=== PATIENT | male | born 1955 | race Caucasian/White ===

== ENCOUNTER 2020-04-05 14:16 | Emergency (ER) | payer MEDICARE, OTHER ==
--- NOTE | 2020-04-05 14:19 | ERPHSYRPT ---
- History of Present Illness Time Seen by Provider: 04/05/20 14:19 Source: patient Exam Limitations: no limitations Physician History: This is a 64-year-old [place] patient who smokes cigarettes and has a significant cardiac history including 3 cardiac stents and sees cardiology at the [place] [facility]. Patient states that he needs a cardiac valve replacement and is undergoing a scheduled transesophageal echo next week. In the last few weeks patient states that he has not been eating or drinking well. He also has associated increase in shortness of breath and intermittently felt palpitations. Patient is on Plavix. Patient has chest pain today and came in for evaluation. Patient arrived with his heart rate in the 130s to 140s. He has no abdominal pain no nausea vomiting or diarrhea. He is noticed no bleeding from any site. He has no cough. Timing/Duration: week(s) (Approximately 3 weeks) Activities at Onset: activity Severity of Dyspnea-Max: moderate Severity of Dyspnea-Current: moderate Possible Cause: no prior episodes Modifying Factors: Improves With: activity Associated Symptoms: chest pain/discomfort Allergies/Adverse Reactions: No Known Drug Allergies Allergy (Verified 04/05/20 14:35) Home Medications: AMITRIPTYLINE HCL 50 mg Tab [AMITRIPTYLINE HCL 50 mg Tablet] 50 mg PO HS 04/05/20 [History] Aspirin EC 81 mg [Ecotrin 81 mg] 81 mg PO DAILY 04/05/20 [History] Atorvastatin Calcium [Lipitor] 80 mg PO DAILY 04/05/20 [History] Clopidogrel Bisulfate 75 mg [PLAVIX 75 MG Tablet] 75 mg PO DAILY 04/05/20 [History] Cyclobenzaprine HCl 10 mg [Cyclobenzaprine 10 MG] 10 mg PO TID 04/05/20 [History] Hydrocodone Bit/Acetaminophen [Hydrocodon-Acetaminophn 10-325] 1 each PO Q46H 04/05/20 [History] Metoprolol Succinate 100 mg [Toprol Xl 100 MG] 100 mg PO DAILY 04/05/20 [History] Travel Risk - International Travel Have you traveled outside of the country in past 3 weeks: No - Coronavirus Screening Are you exhibiting any of the following symptoms?: Yes Symptoms: Shortness of Breath Close contact with a COVID-19 positive Pt in past 14-21 Days: No - Review of Systems Constitutional: Weakness Eyes: No Symptoms Ears, Nose, & Throat: No Symptoms Respiratory: Dyspnea Cardiac: Chest Pain, Palpitations Abdominal/Gastrointestinal: No Symptoms Genitourinary Symptoms: No Symptoms Musculoskeletal: No Symptoms Skin: No Symptoms Neurological: No Symptoms Psychological: No Symptoms Endocrine: No Symptoms Hematologic/Lymphatic: No Symptoms Immunological/Allergic: No Symptoms All Other Systems: Reviewed and Negative - Past Medical History Pertinent Past Medical History: Yes Cardiac History: Coronary Artery Disease, High Cholesterol, Hypertension Respiratory History: No Pertinent History Endocrine Medical History: No Pertinent History Musculoskeletal History: No Pertinent History GI Medical History: No Pertinent History History: No Pertinent History Psycho-Social History: No Pertinent History Male Reproductive Disorders: No Pertinent History - Past Surgical History Past Surgical History: Yes Neuro Surgical History: No Pertinent History Cardiac: Cardiac Catheterization, Cardiac Stent Respiratory: No Pertinent History Gastrointestinal: No Pertinent History Genitourinary: No Pertinent History Musculoskeletal: No Pertinent History Male Surgical History: No Pertinent History - Social History Smoking Status: Current every day smoker - Nursing Vital Signs Nursing Vital Signs: Initial Vital Signs Temperature 97.6 F 04/05/20 14:20 Pulse Rate 139 H 04/05/20 14:20 Respiratory Rate 28 H 04/05/20 14:20 Blood Pressure 123/89 04/05/20 14:20 O2 Sat by Pulse Oximetry 100 04/05/20 14:20 Pain Scale Pain Intensity 6 - Physical Exam General Appearance: moderate distress, alert, anxiety, thin Eye Exam: PERRL/EOMI, eyes nml inspection Ears, Nose, Throat Exam: hearing grossly normal, normal ENT inspection, normal pharynx Neck Exam: normal inspection, non-tender, supple, full range of motion Respiratory Exam: normal breath sounds, chest tenderness, lungs clear, respiratory distress (Old), airway intact Cardiovascular/Chest Exam: normal heart sounds, regular rate/rhythm, normal peripheral pulses Abdominal/Gastrointestinal Exam: soft, normal bowel sounds, tenderness Rectal Exam: not done Extremity Exam: non-tender, normal range of motion, normal inspection Neurologic Exam: alert, oriented x 3, cooperative, 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, normal mood/affect, nml cerebellar function, nml station & gait, sensation nml Skin Exam: warm, dry, pale Lymphatic Exam: No adenopathy SpO2 Interpretation: normal O2 Delivery: Room Air Ordered Tests: Active Orders 24 hr Category Date Time Status [employer] STAT Care 04/05/20 14:20 Active EKG-ER Only STAT Care 04/05/20 14:19 Active IV Insertion STAT Care 04/05/20 14:19 Active IV Insertion-2nd Peripheral STAT Care 04/05/20 14:42 Active Pulse Oximetry (ED) STAT Care 04/05/20 14:19 Active CHEST 1 VIEW (PORTABLE) Stat Exams 04/05/20 14:19 Completed CBC W DIFF Stat Lab 04/05/20 14:43 Completed CMP Stat Lab 04/05/20 14:43 Completed D-DIMER QUANTITATIVE Stat Lab 04/05/20 14:43 Completed NT PRO BNP Stat Lab 04/05/20 14:43 Completed TROPONIN Q3H Lab 04/05/20 14:43 Completed TROPONIN Q3H Lab 04/05/20 17:30 Received TROPONIN Q3H Lab 04/05/20 20:30 Ordered TROPONIN Q3H Lab 04/05/20 23:30 Ordered TROPONIN Q3H Lab 04/06/20 02:30 Ordered Medication Summary Generic Name Dose Route Start Last Admin Trade Name Freq PRN Reason Stop Dose Admin Diltiazem HCl 100 mls @ 5 mls/hr 04/05/20 15:40 04/05/20 15:49 Cardizem Drip 100 Mg/100 Ml D5w IV 05/05/20 15:39 5 mg/hr .Q20H PRN 5 mls/hr HEART RATE/ A-FIB Administration Protocol 5 MG/HR Discontinued Medications Generic Name Dose Route Start Last Admin Trade Name Freq PRN Reason Stop Dose Admin Diltiazem HCl 15 mg 04/05/20 14:31 04/05/20 14:43 Cardizem Iv 50 Mg/10 Ml IV 04/05/20 14:32 15 mg STAT ONE Administration Diltiazem HCl Confirm 04/05/20 14:41 Cardizem Iv 50 Mg/10 Ml Administered 04/05/20 14:42 Dose 50 mg IV .STK-MED ONE Furosemide 40 mg 04/05/20 16:41 04/05/20 16:49 Lasix 40 Mg/4 Ml IV 04/05/20 16:42 40 mg STAT ONE Administration Furosemide Confirm 04/05/20 16:48 Lasix 40 Mg/4 Ml Administered 04/05/20 16:49 Dose 40 mg .ROUTE .STK-MED ONE Sodium Chloride 1,000 mls @ 999 mls/hr 04/05/20 14:46 04/05/20 15:47 Sodium Chloride 0.9% 1000 Ml IV 04/05/20 15:46 Infused .Q1H1M STA Infusion Sodium Chloride Confirm 04/05/20 14:47 Sodium Chloride 0.9% 1000 Ml Administered 04/05/20 14:48 Dose 1,000 mls @ ud .ROUTE .STK-MED ONE Sodium Chloride 1,000 mls @ 999 mls/hr 04/05/20 15:41 04/05/20 15:48 Sodium Chloride 0.9% 1000 Ml IV 04/05/20 16:41 250 mls/hr .Q1H1M STA Administration Sodium Chloride Confirm 04/05/20 15:43 Sodium Chloride 0.9% 1000 Ml Administered 04/05/20 15:44 Dose 1,000 mls @ ud .ROUTE .STK-MED ONE Lab/Rad Data: Laboratory Result Diagrams 04/05/20 14:43 04/05/20 14:43 Laboratory Results 04/05/20 04/05/20 04/05/20 Range/Units 14:43 14:43 14:43 WBC (4.0-10.5) K/mm3 RBC (4.1-5.6) M/mm3 Hgb (12.5-18.0) gm/dl Hct (42-50) % MCV (78-100) fl MCH (26-32) pg MCHC (32-36) g/dl RDW (11.5-14.0) % Plt Count (150-450) K/mm3 MPV (7.5-11.0) fl Gran % (36.0-66.0) % Eos # (Auto) (0-0.5) Absolute Lymphs (auto) (1.0-4.6) Absolute Monos (auto) (0.0-1.3) Lymphocytes % (24.0-44.0) % Monocytes % (0.0-12.0) % Eosinophils % (0.00-5.0) % Basophils % (0.0-0.4) % Absolute Granulocytes (1.4-6.9) Basophils # (0-0.4) D-Dimer 5916 H* (215-500) ng/mL Sodium 140 (137-145) mmol/L Potassium 4.8 (3.5-5.1) mmol/L Chloride 107 (98-107) mmol/L Carbon Dioxide 17 L (22-30) mmol/L Anion Gap 20.6 H (5-15) MEQ/L BUN 43 H (9-20) mg/dL Creatinine 2.61 H (0.66-1.25) mg/dL Estimated GFR 26.3 ML/MIN Glucose 149 H (74-106) mg/dL Calcium 9.2 (8.4-10.2) mg/dL Total Bilirubin 1.00 (0.2-1.3) mg/dL AST 74 H (17-59) U/L ALT 77 H (0-50) U/L Alkaline Phosphatase 137 H (38-126) U/L Troponin I 0.088 H* (0.000-0.034) ng/mL NT-Pro-B Natriuret Pep 20192 H (0-900) pg/mL Serum Total Protein 7.4 (6.3-8.2) g/dL Albumin 4.3 (3.5-5.0) g/dL 04/05/20 Range/Units 14:43 WBC 10.5 (4.0-10.5) K/mm3 RBC 3.86 L (4.1-5.6) M/mm3 Hgb 11.2 L (12.5-18.0) gm/dl Hct 36.1 L (42-50) % MCV 93.5 (78-100) fl MCH 29.0 (26-32) pg MCHC 31.0 L (32-36) g/dl RDW 14.7 H (11.5-14.0) % Plt Count 245 (150-450) K/mm3 MPV 11.2 H (7.5-11.0) fl Gran % 65.6 (36.0-66.0) % Eos # (Auto) 0.02 (0-0.5) Absolute Lymphs (auto) 2.93 (1.0-4.6) Absolute Monos (auto) 0.63 (0.0-1.3) Lymphocytes % 28.0 (24.0-44.0) % Monocytes % 6.0 (0.0-12.0) % Eosinophils % 0.2 (0.00-5.0) % Basophils % 0.2 (0.0-0.4) % Absolute Granulocytes 6.87 (1.4-6.9) Basophils # 0.02 (0-0.4) D-Dimer (215-500) ng/mL Sodium (137-145) mmol/L Potassium (3.5-5.1) mmol/L Chloride (98-107) mmol/L Carbon Dioxide (22-30) mmol/L Anion Gap (5-15) MEQ/L BUN (9-20) mg/dL Creatinine (0.66-1.25) mg/dL Estimated GFR ML/MIN Glucose (74-106) mg/dL Calcium (8.4-10.2) mg/dL Total Bilirubin (0.2-1.3) mg/dL AST (17-59) U/L ALT (0-50) U/L Alkaline Phosphatase (38-126) U/L Troponin I (0.000-0.034) ng/mL NT-Pro-B Natriuret Pep (0-900) pg/mL Serum Total Protein (6.3-8.2) g/dL Albumin (3.5-5.0) g/dL - Progress Progress: improved Air Movement: good Progress Note: 04/05/20 15:41 Repeat EKG after 15 mg of intravenous Cardizem shows normal sinus rhythm at 80 bpm no acute ischemic changes noted. That EKG was done on 04/05/2020 at 3:07 PM 04/05/20 18:11 Medical decision making: This patient and his condition as well as history was reviewed with Dr. Rome Bloom the physician part time receptionist for the [facility]. He accepts the patient in transfer. Bed control contact us. Blood Culture(s) Obtained: No Antibiotics given: No - Departure Departure Disposition: Transfer Clinical Impression: Atrial flutter with rapid ventricular response, Shortness of breath, Chest pain, Elevated d-dimer, Elevated troponin, Acute renal failure Condition: Stable Critical Care Time: Yes Critical Care Time(excluding separately billable procedures): Critical 30-74 mins Referrals: DOCTOR,NO FAMILY [Primary Care Provider] -
[2020-04-05] MEDS ORDERED: Cardizem IV 50 MG/10 ML IV ONE ×2 (14:31→14:41)
[2020-04-05 14:46] LABS: Absolute Neutrophil Ct (ANC) 6.87 (1.4-6.9); BASOPHIL % 0.2 % (0.0-0.4); Basophil (Absolute #) 0.02 (0-0.4); Eosinophil % 0.2 % (0.00-5.0); Eosinophil (Absolute #) 0.02 (0-0.5); Hematocrit 36.1 % (42-50); Hemoglobin 11.2 gm/dl (12.5-18.0); Lymphocyte (Absolute #) 2.93 (1.0-4.6); Mean Cell Volume 93.5 fl (78-100); Mean Platelet Volume 11.2 fl (7.5-11.0); Monocyte (Absolute #) 0.63 (0.0-1.3); Neutrophil % 65.6 % (36.0-66.0); Platelet Count 245 K/mm3 (150-450); Red Blood Count 3.86 M/mm3 (4.1-5.6); Red Cell Distribution Width 14.7 % (11.5-14.0); White Blood Count 10.5 K/mm3 (4.0-10.5)
[2020-04-05] MEDS ORDERED: Sodium Chloride 0.9% 1000 ML 1,000 ML IV STA ×2 (14:46→15:41)
[2020-04-05] MEDS ORDERED: Sodium Chloride 0.9% 1000 ML 1,000 ML ONE ×2 (14:47→15:43)
[2020-04-05 15:28] LABS: ALBUMIN 4.3 g/dL (3.5-5.0); ANION GAP 20.6 MEQ/L (5-15); Calcium 9.2 mg/dL (8.4-10.2); Creatinine 1 2.61 mg/dL (0.66-1.25); EST GLOMERULAR FILTRATION RATE 26.3 ML/MIN; Potassium 4.8 mmol/L (3.5-5.1); Total Protein 7.4 g/dL (6.3-8.2)
[2020-04-05] MEDS ORDERED: CARDIZEM DRIP 100 MG/100 ML D5W 100 ML IV PRN (15:40)
[2020-04-05] MEDS ORDERED: CARDIZEM DRIP 100 MG/100 ML D5W 100 ML IV ONE (15:43)
[2020-04-05] MEDS ORDERED: Lasix 40 MG/4 ML IV ONE (16:41)
[2020-04-05] MEDS ORDERED: Lasix 40 MG/4 ML ONE (16:48)
--- NOTE | 2020-04-05 17:25 | XRAY ---
Indication: Short of breath. Comparison: None Portable chest hyperinflated with minimal right base fibrosis/scarring and right apical suture material. No focal infiltrate, consolidation, or large effusion. Heart is not enlarged with incidental coronary stent. Bony thorax intact with old right 6 rib fracture. Impression: No acute chest with chronic features.
[2020-04-05] MEDS ORDERED: LEVOPHED 4 MG/4 ML 4,000 MCG in Dextrose 5%/Water IV Soln. 500 ML 500 ML IV PRN (19:08)
[2020-04-05] MEDS ORDERED: MORPHINE SULFATE 2 MG INJ IV ONE ×2 (19:49→20:52)
[2020-04-05] MEDS ORDERED: MORPHINE SULFATE 2 MG INJ ONE ×2 (19:50→20:48)
[2020-04-05 20:33] VITALS: PULSE 76; O2SAT 94
[2020-04-05] MEDS ORDERED: Zofran 4 MG/2 ML VIAL ONE (20:47)
[2020-04-05] MEDS ORDERED: Zofran 4 MG/2 ML VIAL IV ONE (20:52)
[2020-04-05 21:19] VITALS: BP 70/0
--- NOTE | 2020-04-05 21:48 | XRAY ---
Indication: Chest pain. Multiple contiguous axial images obtained through the chest without contrast as ordered. Comparison: None. Study limited by mild respiration artifact. Extensive diffuse centrilobular pulmonary emphysema bilaterally with mild bibasilar dependent atelectasis. Superior segment left lower lobe demonstrates small focus of patchy airspace disease. Right minor fissure thickening. No effusion. Heart is not enlarged. Aorta is minimally arteriosclerotic without aneurysmal dilatation. No pathologic mediastinal lymphadenopathy. Bony thorax intact. CT abdomen/pelvis reported separately. Impression: 1. Respiration artifact. 2. Patchy left lower lobe airspace disease. 3. Extensive pulmonary emphysema. Comment: Preliminary interpretation was made by [facility]. No critical discrepancy.
--- NOTE | 2020-04-05 21:53 | XRAY ---
Indication: Sudden onset flank pain. Multiple contiguous axial images obtained through the abdomen and pelvis without contrast as ordered. Comparison: None. CT chest reported separately. Mild respiration artifact throughout. Stomach is mildly fluid distended. Noncontrasted stomach and bowel loops appear nonobstructed. Normal air-filled appendix. Moderate diffuse scattered colonic fecal debris throughout. Radiopacity throughout the colon either ingested medication/bismuth or barium. Minimal sigmoid diverticulosis. No gross free fluid/air. Gallbladder contracted without gallstones. Left kidney is atrophic. Watkins catheter drains the urinary bladder. Remaining liver, pancreas, spleen, adrenal glands, right kidney, and ureters appear unremarkable for noncontrast exam. Mild scattered aortoiliac calcifications without AAA. Incidental undescended left testicle in the inferior left inguinal canal. Osseous structures intact. Indeterminate 1.3cm lytic lesion right innominate bone. Impression: 1. Respiration artifact. 2. Diffuse fecal stasis and minimal sigmoid diverticulosis. 3. Indeterminate right innominate bone lytic lesion, left renal atrophy and undescended left testicle. 4. Remaining CT abdomen/pelvis without contrast exam is grossly negative. Comment: Preliminary interpretation was made by [facility]. No critical discrepancy.
== END 2020-04-05 21:20 ==
LOC: ED 14:16
DX: I48.92 Unspecified atrial flutter (principal); R06.02 Shortness of breath; R07.9 Chest pain, unspecified; R79.89 Other specified abnormal findings of blood chemistry; R74.8 Abnormal levels of other serum enzymes; N17.9 Acute kidney failure, unspecified; I25.10 Atherosclerotic heart disease of native coronary artery without angina pectoris; I10 Essential (primary) hypertension; Z72.0 Tobacco use
CPT/HCPCS: 36000; 36415; 71045; 71250; 74176; 80053; 83880; 84484; 85025; 85379; 93005; 93041; 94760; 96360; 96361; 96365; 96366; 96368; 96374; 96375; 96376; 99285; 99291; J1940; J2270; J2405

== ENCOUNTER 2020-04-22 15:12 | Observation (INO) | payer OTHER, MEDICARE ==
--- NOTE | 2020-04-22 16:37 | ERPHSYRPT ---
- History of Present Illness Source: patient Exam Limitations: no limitations Patient Subjective Stated Complaint: SOB and fatigue Triage Nursing Assessment: pt to ED c/o SOB and fatigue x 3 days. states he was just DC from [place] [facility] for CHF and is "not feeling back to myself yet, and I might feel worse." denies pain currently but states these sx feel same as when dx with CHF. lungs sounds clear bilaterally, heart sounds clear. pt is wam and pale. ambulatory with SBA, WC to room and self pivot to bed. A&Ox4. Timing/Duration: day(s) (A few days.), intermittent, worse Activities at Onset: activity Severity of Dyspnea-Max: moderate Severity of Dyspnea-Current: moderate Possible Cause: occasional episodes Modifying Factors: Improves With: activity Associated Symptoms: intermittent, No anxiety, No cough, No chest pain/discomfort, No wheezing Hx Tetanus, Diphtheria Vaccination/Date Given: No Hx Influenza Vaccination/Date Given: No Hx Pneumococcal Vaccination/Date Given: No Immunizations Up to Date: No - History of Present Illness Time Seen by Provider: 04/22/20 15:45 Physician History: This is a 64-year-old white male who is a [facility] patient and was discharged to home from the [facility] in [place] approximately 8 days ago. There, he was diagnosed with atrial fibrillation and congestive heart failure. Patient states that he was feeling pretty good for a few days but in the last 3 days he has had increasing shortness of breath and fatigue. He has new medications including amiodarone, aspirin, apixaban, Lasix and metoprolol. He denies chest pain. He denies pain anywhere. (VIOLA CRAWLEY) Allergies/Adverse Reactions: No Known Drug Allergies Allergy (Verified 04/22/20 16:00) Home Medications: AMITRIPTYLINE HCL 50 mg Tab [AMITRIPTYLINE HCL 50 mg Tablet] 50 mg PO HS 04/05/20 [History] Aspirin EC 81 mg [Ecotrin 81 mg] 81 mg PO DAILY 04/05/20 [History] Atorvastatin Calcium [Lipitor] 80 mg PO DAILY 04/05/20 [History] Cyclobenzaprine HCl 10 mg [Cyclobenzaprine 10 MG] 10 mg PO TID 04/05/20 [History] Metoprolol Succinate 100 mg [Toprol Xl 100 MG] 50 mg PO DAILY 04/05/20 [History] Amiodarone HCl 200 mg [Cordarone 200 MG] 200 mg PO DAILY 04/22/20 [History] Apixaban [Eliquis] 5 mg PO DAILY 04/22/20 [History] Clopidogrel Bisulfate 75 mg [PLAVIX 75 MG Tablet] 75 mg PO DAILY 04/22/20 [History] Duloxetine HCl 60 mg PO DAILY 04/22/20 [History] Furosemide 20 mg [Lasix 20 mg] 20 mg PO DAILY 04/22/20 [History] Lisinopril 5 mg [Zestril 5 MG] 5 mg PO DAILY 04/22/20 [History] Travel Risk - International Travel Have you traveled outside of the country in past 3 weeks: No - Coronavirus Screening Are you exhibiting any of the following symptoms?: Yes Symptoms: Shortness of Breath Close contact with a COVID-19 positive Pt in past 14-21 Days: No - Review of Systems Constitutional: Fatigue, Weakness Eyes: No Symptoms Ears, Nose, & Throat: No Symptoms Respiratory: No Symptoms Cardiac: No Symptoms Abdominal/Gastrointestinal: No Symptoms Genitourinary Symptoms: No Symptoms Musculoskeletal: No Symptoms Skin: No Symptoms Neurological: No Symptoms Psychological: No Symptoms Endocrine: No Symptoms Hematologic/Lymphatic: No Symptoms Immunological/Allergic: No Symptoms All Other Systems: Reviewed and Negative - Past Medical History Pertinent Past Medical History: Yes Cardiac History: Congestive Heart Failure, Coronary Artery Disease, High Cholesterol, Hypertension, Myocardial Infarction (IA) Respiratory History: No Pertinent History Endocrine Medical History: No Pertinent History Musculoskeletal History: No Pertinent History GI Medical History: No Pertinent History History: No Pertinent History Psycho-Social History: No Pertinent History Male Reproductive Disorders: No Pertinent History Other Medical History: BACK PAIN, PART OF RIGHT LUNG REMOVED 30 YEARS AGO DUE TO UNKNOWN CAUSE - Past Surgical History Past Surgical History: Yes Neuro Surgical History: No Pertinent History Cardiac: Cardiac Catheterization, Cardiac Stent Respiratory: No Pertinent History Gastrointestinal: No Pertinent History Genitourinary: No Pertinent History Musculoskeletal: No Pertinent History Male Surgical History: No Pertinent History Other Surgical History: 3 BACK SURGERIES, LEFT ELBOW SURGERY, 3 STENTS - Social History Smoking Status: Current every day smoker How long have you smoked: years Exposure to second hand smoke: Yes Drug Use: none Patient Lives Alone: No (mother) - Physical Exam General Appearance: no apparent distress, alert, anxiety, thin Eye Exam: PERRL/EOMI, eyes nml inspection Ears, Nose, Throat Exam: hearing grossly normal, normal ENT inspection, normal pharynx Neck Exam: normal inspection, non-tender, supple, full range of motion Respiratory Exam: normal breath sounds, lungs clear, airway intact, No chest tenderness, No respiratory distress Cardiovascular/Chest Exam: normal heart sounds, regular rate/rhythm, normal peripheral pulses Abdominal/Gastrointestinal Exam: soft, normal bowel sounds, No tenderness Rectal Exam: not done Extremity Exam: non-tender, normal range of motion, normal inspection Neurologic Exam: alert, oriented x 3, cooperative, head bucker II-XII nml as tested, normal mood/affect, nml cerebellar function, nml station & gait, sensation nml Skin Exam: normal color, warm, dry Lymphatic Exam: No adenopathy SpO2 Interpretation: normal SpO2: 99 O2 Delivery: Room Air - Nursing Vital Signs Nursing Vital Signs: Initial Vital Signs Temperature 97.4 F 04/22/20 15:20 Pulse Rate 69 04/22/20 15:20 Respiratory Rate 18 04/22/20 15:20 Blood Pressure 120/85 04/22/20 15:20 O2 Sat by Pulse Oximetry 100 04/22/20 15:20 Pain Scale Pain Intensity 0 - Course Nursing assessment & vital signs reviewed: Yes EKG Interpreted by Me: RATE (73), Sinus Rhythm, Left [place] Deviation, NORMAL INTERVALS, NORMAL QRS, Non-specific ST Changes, Other (No acute ischemic changes. The EKG dated 04/05/2020 is a comparison EKG. The atrial tachycardia has now resolved. The prolonged QT interval has now resolved. The left ventricular hypertrophy has now resolved.) Ordered Tests: Active Orders 24 hr Category Date Time Status Mail Truck Driver STAT Care 04/22/20 16:38 Active EKG-ER Only STAT Care 04/22/20 16:37 Active IV Insertion STAT Care 04/22/20 16:37 Active Pulse Oximetry (ED) STAT Care 04/22/20 16:37 Active Re-Check Vital Signs STAT Care 04/22/20 16:37 Active CHEST 1 VIEW (PORTABLE) Stat Exams 04/22/20 16:40 Completed CBC W DIFF Stat Lab 04/22/20 16:37 Completed CMP Stat Lab 04/22/20 15:40 Completed Lactic Acid Stat Lab 04/22/20 17:10 Completed Lactic Acid Stat Lab 04/22/20 19:15 Received MAGNESIUM Stat Lab 04/22/20 15:40 Completed NT PRO BNP Stat Lab 04/22/20 15:40 Completed PROTIME WITH INR Stat Lab 04/22/20 16:37 Completed TROPONIN Q3H Lab 04/22/20 15:40 Completed TROPONIN Q3H Lab 04/22/20 20:19 Completed TROPONIN Q3H Lab 04/22/20 22:45 Completed TROPONIN Q3H Lab 04/23/20 01:45 Ordered TROPONIN Q3H Lab 04/23/20 04:45 Ordered UA W/RFX UR CULTURE Stat Lab 04/22/20 17:23 Completed Transfer Order Routine Transfer 04/23/20 Ordered Medication Summary Discontinued Medications Generic Name Dose Route Start Last Admin Trade Name Freq PRN Reason Stop Dose Admin Aspirin 324 mg 04/22/20 20:33 04/22/20 20:42 Baby Aspirin 81 Mg Chew PO 04/22/20 20:34 Not Given STAT ONE Furosemide 40 mg 04/22/20 20:19 04/22/20 20:25 Lasix 40 Mg/4 Ml IV 04/22/20 20:20 40 mg STAT ONE Administration Furosemide Confirm 04/22/20 20:22 Lasix 40 Mg/4 Ml Administered 04/22/20 20:23 Dose 40 mg .ROUTE .STK-MED ONE Pantoprazole Sodium 80 mg/ 500 mls @ 50 mls/hr 04/23/20 01:00 Sodium Chloride IV 05/23/20 00:59 .Q10H NAOMI Ondansetron HCl 4 mg 04/22/20 20:33 04/22/20 20:41 Zofran 4 Mg/2 Ml Vial IV 04/22/20 20:34 Not Given STAT ONE Lab/Rad Data: Laboratory Result Diagrams 04/22/20 16:37 04/22/20 15:40 Laboratory Results 04/22/20 04/22/20 04/22/20 Range/Units 22:45 20:19 17:23 WBC (4.0-10.5) K/mm3 RBC (4.1-5.6) M/mm3 Hgb (12.5-18.0) gm/dl Hct (42-50) % MCV (78-100) fl MCH (26-32) pg MCHC (32-36) g/dl RDW (11.5-14.0) % Plt Count (150-450) K/mm3 MPV (7.5-11.0) fl Gran % (36.0-66.0) % Eos # (Auto) (0-0.5) Absolute Lymphs (auto) (1.0-4.6) Absolute Monos (auto) (0.0-1.3) Lymphocytes % (24.0-44.0) % Monocytes % (0.0-12.0) % Eosinophils % (0.00-5.0) % Basophils % (0.0-0.4) % Absolute Granulocytes (1.4-6.9) Basophils # (0-0.4) PT (8.83-12.87) SECONDS INR (0.8-3.0) Sodium (137-145) mmol/L Potassium (3.5-5.1) mmol/L Chloride (98-107) mmol/L Carbon Dioxide (22-30) mmol/L Anion Gap (5-15) MEQ/L BUN (9-20) mg/dL Creatinine (0.66-1.25) mg/dL Estimated GFR ML/MIN Glucose (74-106) mg/dL Lactic Acid (0.4-2.0) Calcium (8.4-10.2) mg/dL Magnesium (1.6-2.3) mg/dL Total Bilirubin (0.2-1.3) mg/dL AST (17-59) U/L ALT (0-50) U/L Alkaline Phosphatase (38-126) U/L Troponin I 0.013 < 0.012 (0.000-0.034) ng/mL NT-Pro-B Natriuret Pep (0-900) pg/mL Serum Total Protein (6.3-8.2) g/dL Albumin (3.5-5.0) g/dL Urine Color YELLOW (YELLOW) Urine Appearance CLEAR (CLEAR) Urine pH 5.0 (5-6) Ur Specific Rena Lara 1.018 (1.005-1.025) Urine Protein 30 (Negative) Urine Ketones NEGATIVE (NEGATIVE) Urine Blood NEGATIVE (0-5) Travon/ul Urine Nitrite NEGATIVE (NEGATIVE) Urine Bilirubin NEGATIVE (NEGATIVE) Urine Urobilinogen 2 (0-1) mg/dL Ur Leukocyte Esterase NEGATIVE (NEGATIVE) Urine WBC (Auto) NONE (0-5) /HPF Urine RBC (Auto) NONE (0-2) /HPF U Hyaline Cast (Auto) 11-25 (0-2) /LPF U Epithel Cells (Auto) NONE (FEW) /HPF Urine Bacteria (Auto) NONE (NEGATIVE) /HPF Urine Mucus (Auto) SLIGHT (NEGATIVE) /HPF Urine Culture Reflexed NO (NO) Urine Glucose NEGATIVE (NEGATIVE) mg/dL 04/22/20 04/22/20 04/22/20 Range/Units 17:10 16:37 16:37 WBC 9.9 (4.0-10.5) K/mm3 RBC 3.30 L (4.1-5.6) M/mm3 Hgb 9.2 L (12.5-18.0) gm/dl Hct 30.8 L (42-50) % MCV 93.3 (78-100) fl MCH 27.9 (26-32) pg MCHC 29.9 L (32-36) g/dl RDW 15.4 H (11.5-14.0) % Plt Count 437 (150-450) K/mm3 MPV 10.9 (7.5-11.0) fl Gran % 76.8 H (36.0-66.0) % Eos # (Auto) 0.12 (0-0.5) Absolute Lymphs (auto) 1.66 (1.0-4.6) Absolute Monos (auto) 0.50 (0.0-1.3) Lymphocytes % 16.7 L (24.0-44.0) % Monocytes % 5.0 (0.0-12.0) % Eosinophils % 1.2 (0.00-5.0) % Basophils % 0.3 (0.0-0.4) % Absolute Granulocytes 7.63 H (1.4-6.9) Basophils # 0.03 (0-0.4) PT 52.7 H (8.83-12.87) SECONDS INR 4.59 H (0.8-3.0) Sodium (137-145) mmol/L Potassium (3.5-5.1) mmol/L Chloride (98-107) mmol/L Carbon Dioxide (22-30) mmol/L Anion Gap (5-15) MEQ/L BUN (9-20) mg/dL Creatinine (0.66-1.25) mg/dL Estimated GFR ML/MIN Glucose (74-106) mg/dL Lactic Acid 3.7 H (0.4-2.0) Calcium (8.4-10.2) mg/dL Magnesium (1.6-2.3) mg/dL Total Bilirubin (0.2-1.3) mg/dL AST (17-59) U/L ALT (0-50) U/L Alkaline Phosphatase (38-126) U/L Troponin I (0.000-0.034) ng/mL NT-Pro-B Natriuret Pep (0-900) pg/mL Serum Total Protein (6.3-8.2) g/dL Albumin (3.5-5.0) g/dL Urine Color (YELLOW) Urine Appearance (CLEAR) Urine pH (5-6) Ur Specific Rena Lara (1.005-1.025) Urine Protein (Negative) Urine Ketones (NEGATIVE) Urine Blood (0-5) Travon/ul Urine Nitrite (NEGATIVE) Urine Bilirubin (NEGATIVE) Urine Urobilinogen (0-1) mg/dL Ur Leukocyte Esterase (NEGATIVE) Urine WBC (Auto) (0-5) /HPF Urine RBC (Auto) (0-2) /HPF U Hyaline Cast (Auto) (0-2) /LPF U Epithel Cells (Auto) (FEW) /HPF Urine Bacteria (Auto) (NEGATIVE) /HPF Urine Mucus (Auto) (NEGATIVE) /HPF Urine Culture Reflexed (NO) Urine Glucose (NEGATIVE) mg/dL 04/22/20 04/22/20 Range/Units 15:40 15:40 WBC (4.0-10.5) K/mm3 RBC (4.1-5.6) M/mm3 Hgb (12.5-18.0) gm/dl Hct (42-50) % MCV (78-100) fl MCH (26-32) pg MCHC (32-36) g/dl RDW (11.5-14.0) % Plt Count (150-450) K/mm3 MPV (7.5-11.0) fl Gran % (36.0-66.0) % Eos # (Auto) (0-0.5) Absolute Lymphs (auto) (1.0-4.6) Absolute Monos (auto) (0.0-1.3) Lymphocytes % (24.0-44.0) % Monocytes % (0.0-12.0) % Eosinophils % (0.00-5.0) % Basophils % (0.0-0.4) % Absolute Granulocytes (1.4-6.9) Basophils # (0-0.4) PT (8.83-12.87) SECONDS INR (0.8-3.0) Sodium 134 L (137-145) mmol/L Potassium 4.4 (3.5-5.1) mmol/L Chloride 100 (98-107) mmol/L Carbon Dioxide 21 L (22-30) mmol/L Anion Gap 17.6 H (5-15) MEQ/L BUN 41 H (9-20) mg/dL Creatinine 2.60 H (0.66-1.25) mg/dL Estimated GFR 26.5 ML/MIN Glucose 177 H (74-106) mg/dL Lactic Acid (0.4-2.0) Calcium 9.1 (8.4-10.2) mg/dL Magnesium 2.0 (1.6-2.3) mg/dL Total Bilirubin 0.90 (0.2-1.3) mg/dL AST 234 H (17-59) U/L ALT 234 H (0-50) U/L Alkaline Phosphatase 404 H (38-126) U/L Troponin I 0.015 (0.000-0.034) ng/mL NT-Pro-B Natriuret Pep 55801 H (0-900) pg/mL Serum Total Protein 7.7 (6.3-8.2) g/dL Albumin 3.9 (3.5-5.0) g/dL Urine Color (YELLOW) Urine Appearance (CLEAR) Urine pH (5-6) Ur Specific Rena Lara (1.005-1.025) Urine Protein (Negative) Urine Ketones (NEGATIVE) Urine Blood (0-5) Travon/ul Urine Nitrite (NEGATIVE) Urine Bilirubin (NEGATIVE) Urine Urobilinogen (0-1) mg/dL Ur Leukocyte Esterase (NEGATIVE) Urine WBC (Auto) (0-5) /HPF Urine RBC (Auto) (0-2) /HPF U Hyaline Cast (Auto) (0-2) /LPF U Epithel Cells (Auto) (FEW) /HPF Urine Bacteria (Auto) (NEGATIVE) /HPF Urine Mucus (Auto) (NEGATIVE) /HPF Urine Culture Reflexed (NO) Urine Glucose (NEGATIVE) mg/dL - Progress Progress: improved, re-examined Air Movement: good Blood Culture(s) Obtained: No Antibiotics given: No Counseled pt/family regarding: lab results, diagnosis, rad results - Progress Progress Note: 04/22/20 18:48 Medical decision making: This patient has congestive heart failure that seems to be worsening in the last couple weeks, worsening anemia in the last couple weeks, chronic renal insufficiency, elevated liver function test, elevated INR. He is becoming more symptomatic in terms of shortness of breath and fatigue. We called the [facility] and are waiting a callback from them. I am reviewing the patient with Dr. Marcia Snyder here in this emergency department. I am going to transfer care to him. He has been informed of the patient's diagnoses and condition and will make the final disposition of this patient. It is assumed t hat he will be transferred to the [facility] in [place]. We are awaiting the call back from the hospitalist. (VIOLA CRAWLEY) 04/23/20 00:[address] Snyder at approximately 7 PM. Staff was in the process of transferring patient to the [facility]. [facility] notified our staff that they did not have physician coverage sufficient to care for our patient so they advised to either keep patient in our facility or transfer. Case discussed with hospitalist who felt that patient would require a general ophthalmologist and GI specialist to treat suspected GI bleed and congestive heart failure. We called [facility], [facility], and [facility] all of which were unable to accommodate our patient. [facility] did not have GI a vailable. [facility] stated that they could not accommodate our patient until mid morning or sometime in the afternoon. [facility] could not accommodate our patient due to volume issues. We called Dr. Waters and explained to him the situation. Dr. Waters accepted patient to observation. Patient received Protonix in our ED for possible GI bleed. Patient received Lasix for treatment of elevated BNP. Patient vitals stable. Plan of care discussed with patient. He agreed to admission to [facility] for further evaluation and treatment. (MARCIA SNYDER) - Departure Departure Disposition: Transfer Critical Care Time: No - Departure Clinical Impression: Anemia, Chronic renal insufficiency, stage II (mild), Congestive heart failure, Elevated liver function tests, Elevated INR Condition: Stable Referrals: DOCTOR,NO FAMILY [Primary Care Provider] - Instructions: Heart Failure
[2020-04-22 17:00] LABS: Absolute Neutrophil Ct (ANC) 7.63 (1.4-6.9); BASOPHIL % 0.3 % (0.0-0.4); Basophil (Absolute #) 0.03 (0-0.4); Eosinophil % 1.2 % (0.00-5.0); Eosinophil (Absolute #) 0.12 (0-0.5); Hematocrit 30.8 % (42-50); Hemoglobin 9.2 gm/dl (12.5-18.0); INR 4.59 (0.8-3.0); Lymphocyte (Absolute #) 1.66 (1.0-4.6); Lymphocytes % 16.7 % (24.0-44.0); Mean Cell Volume 93.3 fl (78-100); Mean Corpuscular Hemoglobin 27.9 pg (26-32); Mean Corpuscular Hgb Concent. 29.9 g/dl (32-36); Mean Platelet Volume 10.9 fl (7.5-11.0); Neutrophil % 76.8 % (36.0-66.0); PROTIME 52.7 SECONDS (8.83-12.87); Platelet Count 437 K/mm3 (150-450); Red Cell Distribution Width 15.4 % (11.5-14.0); White Blood Count 9.9 K/mm3 (4.0-10.5)
--- NOTE | 2020-04-22 17:12 | XRAY ---
Indication: Short of breath and fatigue. Comparison: April 05, 2020. Portable chest unchanged again demonstrating COPD, minimal bibasilar fibrosis/scarring, and right apical suture material. Heart is not enlarged. No new/acute cardiopulmonary abnormalities.
[2020-04-22 17:24] LABS: ALBUMIN 3.9 g/dL (3.5-5.0); ANION GAP 17.6 MEQ/L (5-15); BILIRUBIN,TOTAL 0.9 mg/dL (0.2-1.3); Calcium 9.1 mg/dL (8.4-10.2); Creatinine 1 2.6 mg/dL (0.66-1.25); EST GLOMERULAR FILTRATION RATE 26.5 ML/MIN; Potassium 4.4 mmol/L (3.5-5.1); Total Protein 7.7 g/dL (6.3-8.2)
[2020-04-22 17:35] LABS: Appearance CLEAR (CLEAR); Bilirubin NEGATIVE (NEGATIVE); Blood NEGATIVE Ery/ul (0-5); Glucose NEGATIVE (NEGATIVE); Ketones NEGATIVE (NEGATIVE); Leukocyte Esterase NEGATIVE (NEGATIVE); Mucus SLIGHT /HPF (NEGATIVE); Nitrite NEGATIVE (NEGATIVE); Protein,Urine Dip 30 (Negative); Specific Gravity 1.018 (1.005-1.025); Urobilinogen 2 mg/dL (0-1)
[2020-04-22] MEDS ORDERED: Lasix 40 MG/4 ML IV ONE (20:19)
[2020-04-22] MEDS ORDERED: Lasix 40 MG/4 ML ONE (20:22)
[2020-04-22] MEDS ORDERED: Zofran 4 MG/2 ML VIAL IV ONE (20:33)
[2020-04-22] MEDS ORDERED: BABY ASPIRIN 81 MG CHEW PO ONE (20:33)
[2020-04-23] MEDS ORDERED: PROTONIX 40 MG IV IV ONE ×2 (00:58→01:00)
[2020-04-23] MEDS ORDERED: PROTONIX 40 MG IV*** 80 MG in Sodium Chloride 0.9% 500 ML 500 ML IV SCH (01:00)
[2020-04-23 05:25] LABS: Hematocrit 29.1 % (42-50); Hemoglobin 8.7 gm/dl (12.5-18.0); Mean Cell Volume 92.7 fl (78-100); Mean Corpuscular Hemoglobin 27.7 pg (26-32); Mean Corpuscular Hgb Concent. 29.9 g/dl (32-36); Mean Platelet Volume 10.9 fl (7.5-11.0); Platelet Count 363 K/mm3 (150-450); Red Blood Count 3.14 M/mm3 (4.1-5.6); Red Cell Distribution Width 15.4 % (11.5-14.0); White Blood Count 14.4 K/mm3 (4.0-10.5)
[2020-04-23 05:45] LABS: ANION GAP 15.4 MEQ/L (5-15); Calcium 8.7 mg/dL (8.4-10.2); Creatinine 1 2.7 mg/dL (0.66-1.25); EST GLOMERULAR FILTRATION RATE 25.3 ML/MIN; Potassium 4.9 mmol/L (3.5-5.1)
[2020-04-23 08:18] VITALS: PULSE 72
[2020-04-23] MEDS ORDERED: NORCO 7.5/325 MG TAB PO PRN (11:03)
[2020-04-23] MEDS ORDERED: Toprol Xl 100 MG PO SCH (11:15)
[2020-04-23] MEDS ORDERED: Cymbalta 30 MG Capsule PO SCH (11:15)
[2020-04-23] MEDS ORDERED: PLAVIX 75 MG Tablet PO SCH (11:15)
[2020-04-23] MEDS ORDERED: Cordarone 200 MG PO SCH (11:15)
[2020-04-23] MEDS ORDERED: Toprol Xl 50 MG PO SCH (11:15)
[2020-04-23] MEDS ORDERED: Zestril 5 MG PO SCH (11:15)
[2020-04-23] MEDS ORDERED: LASIX 20 MG PO SCH (11:15)
[2020-04-23] MEDS ORDERED: ELIQUIS 2.5 MG TABLET PO SCH (11:15)
--- NOTE | 2020-04-23 11:50 | PCM.SSS ---
History of Present Illness - Chief Complaint Chief Complaint: SOB, symptomatic anemia, suspected GI bleed History of Present Illness: is a 64-year-old white male who is a [facility] patient and was discharged to home from the [facility] in [place] approximately 8 days ago. There , he was diagnosed with atrial fibrillation and congestive heart failure. Patient states that he was feeling pretty good for a few days but in the last 3 days he has had increasing shortness of breath and fatigue. He has new medications including amiodarone, aspirin, apixaban, Lasix and metoprolol. He denies chest pain. He denies pain anywhere. - Review of Systems Constitutional: No Fever, No Chills Eyes: No Symptoms Ears, Nose, & Throat: No Symptoms Respiratory: Orthopnea, Short Of Breath, No Cough Cardiac: Edema, Palpitations, Orthopnea, PND, No Chest Pain, No Syncope Abdominal/Gastrointestinal: No Abdominal Pain, No Nausea, No Vomiting, No Diarrhea Genitourinary Symptoms: No Dysuria Musculoskeletal: No Back Pain, No Neck Pain Skin: No Rash Neurological: No Dizziness, No Focal Weakness, No Sensory Changes Psychological: No Symptoms Endocrine: No Symptoms Hematologic/Lymphatic: No Symptoms Immunological/Allergic: No Symptoms Medications & Allergies Home Medications: Home Medication List AMITRIPTYLINE HCL 50 mg Tab [AMITRIPTYLINE HCL 50 mg Tablet] 50 mg PO HS 04/05/20 [History Confirmed 04/23/20] Aspirin EC 81 mg [Ecotrin 81 mg] 81 mg PO DAILY 04/05/20 [History Co nfirmed 04/23/20] Atorvastatin Calcium [Lipitor] 80 mg PO DAILY 04/05/20 [History Confirmed 04/23/20] Cyclobenzaprine HCl 10 mg [Cyclobenzaprine 10 MG] 10 mg PO TID 04/05/20 [History Confirmed 04/23/20] Metoprolol Succinate 100 mg [Toprol Xl 100 MG] 50 mg PO DAILY 04/05/20 [History Confirmed 04/23/20] Amiodarone HCl 200 mg [Cordarone 200 MG] 200 mg PO DAILY 04/22/20 [History Confirmed 04/23/20] Apixaban [Eliquis] 5 mg PO DAILY 04/22/20 [History Confirmed 04/23/20] Clopidogrel Bisulfate 75 mg [PLAVIX 75 MG Tablet] 75 mg PO DAILY 04/22/20 [History Confirmed 04/23/20] Duloxetine HCl 60 mg PO DAILY 04/22/20 [History Confirmed 04/23/20] Furosemide 20 mg [Lasix 20 mg] 20 mg PO DAILY 04/22/20 [History Confirmed 04/23/20] Lisinopril 5 mg [Zestril 5 MG] 5 mg PO DAILY 04/22/20 [History Confirmed 04/23/20] Hydrocodone/Acetaminophen [Hydrocodone-Acetamin 7.5-325] 1 each PO [id number] PRN 04/23/20 [History Confirmed 04/23/20] Allergies/Adverse Reactions: Allergies Allergy/AdvReac Type Severity Reaction Status Date / Time No Known Drug Allergies Allergy Verified 04/23/20 01:31 - Past Medical History Past Medical History: Yes Neurological History: No Pertinent History ENT History: No Pertinent History Cardiac History: Congestive Heart Failure, High Cholesterol, Hypertension, Myocardial Infarction ([place]) Respiratory History: No Pertinent History Endocrine Medical History: No Pertinent History Musculoskelatal History: No Pertinent History GI Medical History: No Pertinent History History: No Pertinent History Pyscho-Social History: No Pertinent History Male Reproductive Disorders: No Pertinent History Comment: BACK PAIN, PART OF RIGHT LUNG REMOVED 30 YEARS AGO DUE TO UNKNOWN CAUSE - Past Surgical History Past Surgical History: Yes Neuro Surgical History: No Pertinent History Cardiac History: Cardiac Catheterization, Cardiac Stent Respiratory Surgery: No Pertinent History GI Surgical History: No Pertinent History Genitourinary Surgical Hx: No Pertinent History Musculskeletal Surgical Hx: No Pertinent History Male Surgical History: No Pertinent History Other Surgical History: 3 BACK SURGERIES, LEFT ELBOW SURGERY, 3 STENTS - Social History Smoking Status: Current every day smoker How long have you smoked: years Exposure to second hand smoke: Yes Alcohol: None Drug Use: none - Physical Exam Vital Signs: Vital Signs - 24 hr Temp Pulse Resp BP BP Pulse Ox 04/23/20 08:00 99.0 F 72 16 98/62 95 04/23/20 01:53 97.5 F 77 18 118/76 99 04/23/20 01:31 97.5 F 77 18 118/76 99 04/23/20 01:20 97.5 F 77 18 118/76 99 04/23/20 01:00 70 16 111/79 100 04/23/20 00:00 68 17 106/85 100 04/22/20 23:00 70 17 120/83 99 04/22/20 22:00 72 16 112/82 100 04/22/20 21:00 68 18 106/85 100 04/22/20 20:00 69 16 113/72 96 04/22/20 19:00 74 16 114/80 100 04/22/20 18:50 99 04/22/20 18:32 70 17 112/81 100 04/22/20 17:05 65 18 120/85 100 04/22/20 16:18 70 24 120/85 99 04/22/20 16:17 97.4 F 64 20 120/85 98 04/22/20 15:20 97.4 F 69 20 120/85 99 General Appearance: no apparent distress, alert Neurologic Exam: alert, oriented x 3, cooperative, normal mood/affect, nml cerebellar function, nml station & gait, sensation nml, No motor deficits Eye Exam: PERRL/EOMI, eyes nml inspection Ears, Nose, Throat Exam: normal ENT inspection, TMs normal, pharynx normal, moist mucous membranes Neck Exam: normal inspection, non-tender, supple, full range of motion Respiratory Exam: crackles/rales, rhonchi, wheezing, No respiratory distress Cardiovascular Exam: regular rate/rhythm, normal heart sounds, normal peripheral pulses Gastrointestinal/Abdomen Exam: soft, normal bowel sounds, No tenderness, No mass Back Exam: normal inspection, normal range of motion, No CVA tenderness, No vertebral tenderness Extremity Exam: normal inspection, normal range of motion, pelvis stable Skin Exam: normal color, warm, dry, No rash Lymphatic Exam: No adenopathy Results - Labs Lab/Micro Results: Lab Results-Last 24 Hours 04/22/20 04/22/20 04/22/20 Range/Units 15:40 15:40 16:37 WBC 9.9 (4.0-10.5) K/mm3 RBC 3.30 L (4.1-5.6) M/mm3 Hgb 9.2 L (12.5-18.0) gm/dl Hct 30.8 L (42-50) % MCV 93.3 (78-100) fl MCH 27.9 (26-32) pg MCHC 29.9 L (32-36) g/dl RDW 15.4 H (11.5-14.0) % Plt Count 437 (150-450) K/mm3 MPV 10.9 (7.5-11.0) fl Gran % 76.8 H (36.0-66.0) % Eos # (Auto) 0.12 (0-0.5) Absolute Lymphs (auto) 1.66 (1.0-4.6) Absolute Monos (auto) 0.50 (0.0-1.3) Lymphocytes % 16.7 L (24.0-44.0) % Monocytes % 5.0 (0.0-12.0) % Eosinophils % 1.2 (0.00-5.0) % Basophils % 0.3 (0.0-0.4) % Absolute Granulocytes 7.63 H (1.4-6.9) Basophils # 0.03 (0-0.4) PT (8.83-12.87) SECONDS INR (0.8-3.0) Sodium 134 L (137-145) mmol/L Potassium 4.4 (3.5-5.1) mmol/L Chloride 100 (98-107) mmol/L Carbon Dioxide 21 L (22-30) mmol/L Anion Gap 17.6 H (5-15) MEQ/L BUN 41 H (9-20) mg/dL Creatinine 2.60 H (0.66-1.25) mg/dL Estimated GFR 26.5 ML/MIN Glucose 177 H (74-106) mg/dL Lactic Acid (0.4-2.0) Calcium 9.1 (8.4-10.2) mg/dL Magnesium 2.0 (1.6-2.3) mg/dL Total Bilirubin 0.90 (0.2-1.3) mg/dL AST 234 H (17-59) U/L ALT 234 H (0-50) U/L Alkaline Phosphatase 404 H (38-126) U/L Troponin I 0.015 (0.000-0.034) ng/mL NT-Pro-B Natriuret Pep 05768 H (0-900) pg/mL Serum Total Protein 7.7 (6.3-8.2) g/dL Albumin 3.9 (3.5-5.0) g/dL Urine Color (YELLOW) Urine Appearance (CLEAR) Urine pH (5-6) Ur Specific [place] (1.005-1.025) Urine Protein (Negative) Urine Ketones (NEGATIVE) Urine Blood (0-5) Travon/ul Urine Nitrite (NEGATIVE) Urine Bilirubin (NEGATIVE) Urine Urobilinogen (0-1) mg/dL Ur Leukocyte Esterase (NEGATIVE) Urine WBC (Auto) (0-5) /HPF Urine RBC (Auto) (0-2) /HPF U Hyaline Cast (Auto) (0-2) /LPF U Epithel Cells (Auto) (FEW) /HPF Urine Bacteria (Auto) (NEGATIVE) /HPF Urine Mucus (Auto) (NEGATIVE) /HPF Urine Culture Reflexed (NO) Urine Glucose (NEGATIVE) mg/dL 04/22/20 04/22/20 04/22/20 Range/Units 16:37 17:10 17:23 WBC (4.0-10.5) K/mm3 RBC (4.1-5.6) M/mm3 Hgb (12.5-18.0) gm/dl Hct (42-50) % MCV (78-100) fl MCH (26-32) pg MCHC (32-36) g/dl RDW (11.5-14.0) % Plt Count (150-450) K/mm3 MPV (7.5-11.0) fl Gran % (36.0-66.0) % Eos # (Auto) (0-0.5) Absolute Lymphs (auto) (1.0-4.6) Absolute Monos (auto) (0.0-1.3) Lymphocytes % (24.0-44.0) % Monocytes % (0.0-12.0) % Eosinophils % (0.00-5.0) % Basophils % (0.0-0.4) % Absolute Granulocytes (1.4-6.9) Basophils # (0-0.4) PT 52.7 H (8.83-12.87) SECONDS INR 4.59 H (0.8-3.0) Sodium (137-145) mmol/L Potassium (3.5-5.1) mmol/L Chloride (98-107) mmol/L Carbon Dioxide (22-30) mmol/L Anion Gap (5-15) MEQ/L BUN (9-20) mg/dL Creatinine (0.66-1.25) mg/dL Estimated GFR ML/MIN Glucose (74-106) mg/dL Lactic Acid 3.7 H (0.4-2.0) Calcium (8.4-10.2) mg/dL Magnesium (1.6-2.3) mg/dL Total Bilirubin (0.2-1.3) mg/dL AST (17-59) U/L ALT (0-50) U/L Alkaline Phosphatase (38-126) U/L Troponin I (0.000-0.034) ng/mL NT-Pro-B Natriuret Pep (0-900) pg/mL Serum Total Protein (6.3-8.2) g/dL Albumin (3.5-5.0) g/dL Urine Color YELLOW (YELLOW) Urine Appearance CLEAR (CLEAR) Urine pH 5.0 (5-6) Ur Specific [place] 1.018 (1.005-1.025) Urine Protein 30 (Negative) Urine Ketones NEGATIVE (NEGATIVE) Urine Blood NEGATIVE (0-5) Travon/ul Urine Nitrite NEGATIVE (NEGATIVE) Urine Bilirubin NEGATIVE (NEGATIVE) Urine Urobilinogen 2 (0-1) mg/dL Ur Leukocyte Esterase NEGATIVE (NEGATIVE) Urine WBC (Auto) NONE (0-5) /HPF Urine RBC (Auto) NONE (0-2) /HPF U Hyaline Cast (Auto) 11-25 (0-2) /LPF U Epithel Cells (Auto) NONE (FEW) /HPF Urine Bacteria (Auto) NONE (NEGATIVE) /HPF Urine Mucus (Auto) SLIGHT (NEGATIVE) /HPF Urine Culture Reflexed NO (NO) Urine Glucose NEGATIVE (NEGATIVE) mg/dL 04/22/20 04/22/20 04/23/20 Range/Units 20:19 22:45 01:50 WBC (4.0-10.5) K/mm3 RBC (4.1-5.6) M/mm3 Hgb (12.5-18.0) gm/dl Hct (42-50) % MCV (78-100) fl MCH (26-32) pg MCHC (32-36) g/dl RDW (11.5-14.0) % Plt Count (150-450) K/mm3 MPV (7.5-11.0) fl Gran % (36.0-66.0) % Eos # (Auto) (0-0.5) Absolute Lymphs (auto) (1.0-4.6) Absolute Monos (auto) (0.0-1.3) Lymphocytes % (24.0-44.0) % Monocytes % (0.0-12.0) % Eosinophils % (0.00-5.0) % Basophils % (0.0-0.4) % Absolute Granulocytes (1.4-6.9) Basophils # (0-0.4) PT (8.83-12.87) SECONDS INR (0.8-3.0) Sodium (137-145) mmol/L Potassium (3.5-5.1) mmol/L Chloride (98-107) mmol/L Carbon Dioxide (22-30) mmol/L Anion Gap (5-15) MEQ/L BUN (9-20) mg/dL Creatinine (0.66-1.25) mg/dL Estimated GFR ML/MIN Glucose (74-106) mg/dL Lactic Acid (0.4-2.0) Calcium (8.4-10.2) mg/dL Magnesium (1.6-2.3) mg/dL Total Bilirubin (0.2-1.3) mg/dL AST (17-59) U/L ALT (0-50) U/L Alkaline Phosphatase (38-126) U/L Troponin I < 0.012 0.013 < 0.012 (0.000-0.034) ng/mL NT-Pro-B Natriuret Pep (0-900) pg/mL Serum Total Protein (6.3-8.2) g/dL Albumin (3.5-5.0) g/dL Urine Color (YELLOW) Urine Appearance (CLEAR) Urine pH (5-6) Ur Specific [place] (1.005-1.025) Urine Protein (Negative) Urine Ketones (NEGATIVE) Urine Blood (0-5) Travon/ul Urine Nitrite (NEGATIVE) Urine Bilirubin (NEGATIVE) Urine Urobilinogen (0-1) mg/dL Ur Leukocyte Esterase (NEGATIVE) Urine WBC (Auto) (0-5) /HPF Urine RBC (Auto) (0-2) /HPF U Hyaline Cast (Auto) (0-2) /LPF U Epithel Cells (Auto) (FEW) /HPF Urine Bacteria (Auto) (NEGATIVE) /HPF Urine Mucus (Auto) (NEGATIVE) /HPF Urine Culture Reflexed (NO) Urine Glucose (NEGATIVE) mg/dL 04/23/20 04/23/20 04/23/20 Range/Units 04:30 04:30 04:30 WBC 14.4 H (4.0-10.5) K/mm3 RBC 3.14 L (4.1-5.6) M/mm3 Hgb 8.7 L (12.5-18.0) gm/dl Hct 29.1 L (42-50) % MCV 92.7 (78-100) fl MCH 27.7 (26-32) pg MCHC 29.9 L (32-36) g/dl RDW 15.4 H (11.5-14.0) % Plt Count 363 (150-450) K/mm3 MPV 10.9 (7.5-11.0) fl Gran % (36.0-66.0) % Eos # (Auto) (0-0.5) Absolute Lymphs (auto) (1.0-4.6) Absolute Monos (auto) (0.0-1.3) Lymphocytes % (24.0-44.0) % Monocytes % (0.0-12.0) % Eosinophils % (0.00-5.0) % Basophils % (0.0-0.4) % Absolute Granulocytes (1.4-6.9) Basophils # (0-0.4) PT (8.83-12.87) SECONDS INR (0.8-3.0) Sodium 135 L (137-145) mmol/L Potassium 4.9 (3.5-5.1) mmol/L Chloride 102 (98-107) mmol/L Carbon Dioxide 22 (22-30) mmol/L Anion Gap 15.4 H (5-15) MEQ/L BUN 46 H (9-20) mg/dL Creatinine 2.70 H (0.66-1.25) mg/dL Estimated GFR 25.3 ML/MIN Glucose 104 (74-106) mg/dL Lactic Acid (0.4-2.0) Calcium 8.7 (8.4-10.2) mg/dL Magnesium (1.6-2.3) mg/dL Total Bilirubin (0.2-1.3) mg/dL AST (17-59) U/L ALT (0-50) U/L Alkaline Phosphatase (38-126) U/L Troponin I 0.013 (0.000-0.034) ng/mL NT-Pro-B Natriuret Pep 76123 H (0-900) pg/mL Serum Total Protein (6.3-8.2) g/dL Albumin (3.5-5.0) g/dL Urine Color (YELLOW) Urine Appearance (CLEAR) Urine pH (5-6) Ur Specific [place] (1.005-1.025) Urine Protein (Negative) Urine Ketones (NEGATIVE) Urine Blood (0-5) Travon/ul Urine Nitrite (NEGATIVE) Urine Bilirubin (NEGATIVE) Urine Urobilinogen (0-1) mg/dL Ur Leukocyte Esterase (NEGATIVE) Urine WBC (Auto) (0-5) /HPF Urine RBC (Auto) (0-2) /HPF U Hyaline Cast (Auto) (0-2) /LPF U Epithel Cells (Auto) (FEW) /HPF Urine Bacteria (Auto) (NEGATIVE) /HPF Urine Mucus (Auto) (NEGATIVE) /HPF Urine Culture Reflexed (NO) Urine Glucose (NEGATIVE) mg/dL - Radiology Impressions Radiology Exams & Impressions: Radiology Procedures Category Date Time Status CHEST 1 VIEW (PORTABLE) Stat Exams 04/22/20 16:40 Completed Assessment/Plan (1) Congestive heart failure Current Visit: Yes Status: Acute Qualifiers: Heart failure type: combined systolic and diastolic Heart failure chronicity: acute on chronic Qualified Code(s): I50.43 - Acute on chronic combined systolic (congestive) and diastolic (congestive) heart failure Assessment & Plan: Chief Complaint Diagnosis SOB, symptomatic anemia, suspected GI bleed Allergies Allergy/AdvReac Type Severity Reaction Status Date / Time No Known Drug Allergies Allergy Verified 04/23/20 01:31 Vital Signs (Last 24 hours) Temp Pulse Resp BP BP Pulse Ox 04/23/20 08:00 99.0 F 72 16 98/62 95 04/23/20 01:53 97.5 F 77 18 118/76 99 04/23/20 01:31 97.5 F 77 18 118/76 99 04/23/20 01:20 97.5 F 77 18 118/76 99 04/23/20 01:00 70 16 111/79 100 04/23/20 00:00 68 17 106/85 100 04/22/20 23:00 70 17 120/83 99 04/22/20 22:00 72 16 112/82 100 04/22/20 21:00 68 18 106/85 100 04/22/20 20:00 69 16 113/72 96 04/22/20 19:00 74 16 114/80 100 04/22/20 18:50 99 04/22/20 18:32 70 17 112/81 100 04/22/20 17:05 65 18 120/85 100 04/22/20 16:18 70 24 120/85 99 04/22/20 16:17 97.4 F 64 20 120/85 98 04/22/20 15:20 97.4 F 69 20 120/85 99 Home Medications Medication Instructions Recorded Confirmed Last Taken Type Amiodarone HCl 200 mg 200 mg PO DAILY 04/22/20 04/23/20 04/22/20 History [Cordarone 200 MG] Apixaban [Eliquis] 5 mg PO DAILY 04/22/20 04/23/20 04/22/20 History Clopidogrel Bisulfate 75 mg 75 mg PO DAILY 04/22/20 04/23/20 04/22/20 History [PLAVIX 75 MG Tablet] Duloxetine HCl 60 mg PO DAILY 04/22/20 04/23/20 04/22/20 History Furosemide 20 mg [Lasix 20 20 mg PO DAILY 04/22/20 04/23/20 04/22/20 History mg] Lisinopril 5 mg [Zestril 5 5 mg PO DAILY 04/22/20 04/23/20 04/22/20 History MG] Hydrocodone/Acetaminophen 1 each PO [id number] PRN 04/23/20 04/23/20 Unknown History [Hydrocodone-Acetamin 7.5-325] Current Medications Generic Name Dose Route Start Last Admin Trade Name Freq PRN Reason Stop Dose Admin Hydrocodone Bitart/Acetaminophen 1 tab 04/23/20 11:03 04/23/20 11:31 [place] 7.5/325 Mg Tab PO 04/28/20 11:02 1 tab [id number] PRN Administration PAIN Amiodarone HCl 200 mg 04/23/20 11:15 04/23/20 11:24 Cordarone 200 Mg PO 05/23/20 11:14 200 mg DAILY NAOMI Administration Amitriptyline HCl 50 mg 04/23/20 22:00 Amitriptyline Hcl 50 Mg Tablet PO 05/23/20 21:59 HS [facility] Apixaban 5 mg 04/23/20 11:15 04/23/20 11:32 Eliquis 2.5 Mg Tablet PO 05/23/20 11:14 5 mg DAILY NAOMI Administration Aspirin 81 mg 04/24/20 10:00 Ecotrin 81 Mg PO 05/24/20 09:59 DAILY [facility] Atorvastatin Calcium 80 mg 04/23/20 22:00 Lipitor 40mg PO 05/23/20 21:59 HS [facility] Clopidogrel Bisulfate 75 mg 04/23/20 11:15 Plavix 75 Mg Tablet PO 05/23/20 11:14 DAILY [facility] Cyclobenzaprine HCl 10 mg 04/23/20 15:00 Cyclobenzaprine 10 Mg PO 05/23/20 14:59 TID [facility] Duloxetine HCl 60 mg 04/23/20 11:15 04/23/20 11:24 Cymbalta 30 Mg Capsule PO 05/23/20 11:14 60 mg DAILY NAOMI Administration Furosemide 20 mg 04/23/20 11:15 04/23/20 11:31 Lasix 20 Mg PO 05/23/20 11:14 20 mg DAILY NAOMI Administration Lisinopril 5 mg 04/23/20 11:15 Zestril 5 Mg PO 05/23/20 11:14 DAILY [facility] Metoprolol Succinate 50 mg 04/23/20 11:15 04/23/20 11:30 Toprol Xl 50 Mg PO 05/23/20 11:14 50 mg DAILY NAOMI Administration Discontinued Medications Generic Name Dose Route Start Last Admin Trade Name Freq PRN Reason Stop Dose Admin Aspirin 324 mg 04/22/20 20:33 04/22/20 20:42 Baby Aspirin 81 Mg Chew PO 04/22/20 20:34 Not Given STAT ONE Furosemide 40 mg 04/22/20 20:19 04/22/20 20:25 Lasix 40 Mg/4 Ml IV 04/22/20 20:20 40 mg STAT ONE Administration Furosemide Confirm 04/22/20 20:22 Lasix 40 Mg/4 Ml Administered 04/22/20 20:23 Dose 40 mg .ROUTE .STK-MED ONE Pantoprazole Sodium 80 mg/ 500 mls @ 50 mls/hr 04/23/20 01:00 Sodium Chloride IV 05/23/20 00:59 .Q10H NAOMI Ondansetron HCl 4 mg 04/22/20 20:33 04/22/20 20:41 Zofran 4 Mg/2 Ml Vial IV 04/22/20 20:34 Not Given STAT ONE Pantoprazole Sodium 40 mg 04/23/20 00:58 04/23/20 01:00 Protonix 40 Mg Iv IV 04/23/20 00:59 40 mg STAT ONE Administration Pantoprazole Sodium Confirm 04/23/20 01:00 Protonix 40 Mg Iv Administered 04/23/20 01:01 Dose 40 mg IV .STK-MED ONE Intake & Output (Last 24 hours) 04/20/20 04/21/20 04/22/20 04/23/20 11:59 11:59 11:59 11:59 Output Total 1100 Balance -1100 Weight 57.7 kg Laboratory Results (Last 24 hours) 04/23/20 04/23/20 04/23/20 04:30 04:30 04:30 WBC 14.4 H RBC 3.14 L Hgb 8.7 L Hct 29.1 L MCV 92.7 MCH 27.7 MCHC 29.9 L RDW 15.4 H Plt Count 363 MPV 10.9 Gran % Eos # (Auto) Absolute Lymphs (auto) Absolute Monos (auto) Lymphocytes % Monocytes % Eosinophils % Basophils % Absolute Granulocytes Basophils # PT INR Sodium 135 L Potassium 4.9 Chloride 102 Carbon Dioxide 22 Anion Gap 15.4 H BUN 46 H Creatinine 2.70 H Estimated GFR 25.3 Glucose 104 Lactic Acid Calcium 8.7 Magnesium Total Bilirubin AST ALT Alkaline Phosphatase Troponin I 0.013 NT-Pro-B Natriuret Pep 48701 H Serum Total Protein Albumin Urine Color Urine Appearance Urine pH Ur Specific [place] Urine Protein Urine Ketones Urine Blood Urine Nitrite Urine Bilirubin Urine Urobilinogen Ur Leukocyte Esterase Urine WBC (Auto) Urine RBC (Auto) U Hyaline Cast (Auto) U Epithel Cells (Auto) Urine Bacteria (Auto) Urine Mucus (Auto) Urine Culture Reflexed Urine Glucose 04/23/20 04/22/20 04/22/20 01:50 22:45 20:19 WBC RBC Hgb Hct MCV MCH MCHC RDW Plt Count MPV Gran % Eos # (Auto) Absolute Lymphs (auto) Absolute Monos (auto) Lymphocytes % Monocytes % Eosinophils % Basophils % Absolute Granulocytes Basophils # PT INR Sodium Potassium Chloride Carbon Dioxide Anion Gap BUN Creatinine Estimated GFR Glucose Lactic Acid Calcium Magnesium Total Bilirubin AST ALT Alkaline Phosphatase Troponin I < 0.012 0.013 < 0.012 NT-Pro-B Natriuret Pep Serum Total Protein Albumin Urine Color Urine Appearance Urine pH Ur Specific [place] Urine Protein Urine Ketones Urine Blood Urine Nitrite Urine Bilirubin Urine Urobilinogen Ur Leukocyte Esterase Urine WBC (Auto) Urine RBC (Auto) U Hyaline Cast (Auto) U Epithel Cells (Auto) Urine Bacteria (Auto) Urine Mucus (Auto) Urine Culture Reflexed Urine Glucose 04/22/20 04/22/20 04/22/20 17:23 17:10 16:37 WBC RBC Hgb Hct MCV MCH MCHC RDW Plt Count MPV Gran % Eos # (Auto) Absolute Lymphs (auto) Absolute Monos (auto) Lymphocytes % Monocytes % Eosinophils % Basophils % Absolute Granulocytes Basophils # PT 52.7 H INR 4.59 H Sodium Potassium Chloride Carbon Dioxide Anion Gap BUN Creatinine Estimated GFR Glucose Lactic Acid 3.7 H Calcium Magnesium Total Bilirubin AST ALT Alkaline Phosphatase Troponin I NT-Pro-B Natriuret Pep Serum Total Protein Albumin Urine Color YELLOW Urine Appearance CLEAR Urine pH 5.0 Ur Specific [place] 1.018 Urine Protein 30 Urine Ketones NEGATIVE Urine Blood NEGATIVE Urine Nitrite NEGATIVE Urine Bilirubin NEGATIVE Urine Urobilinogen 2 Ur Leukocyte Esterase NEGATIVE Urine WBC (Auto) NONE Urine RBC (Auto) NONE U Hyaline Cast (Auto) 11-25 U Epithel Cells (Auto) NONE Urine Bacteria (Auto) NONE Urine Mucus (Auto) SLIGHT Urine Culture Reflexed NO Urine Glucose NEGATIVE 04/22/20 04/22/20 04/22/20 16:37 15:40 15:40 WBC 9.9 RBC 3.30 L Hgb 9.2 L Hct 30.8 L MCV 93.3 MCH 27.9 MCHC 29.9 L RDW 15.4 H Plt Count 437 MPV 10.9 Gran % 76.8 H Eos # (Auto) 0.12 Absolute Lymphs (auto) 1.66 Absolute Monos (auto) 0.50 Lymphocytes % 16.7 L Monocytes % 5.0 Eosinophils % 1.2 Basophils % 0.3 Absolute Granulocytes 7.63 H Basophils # 0.03 PT INR Sodium 134 L Potassium 4.4 Chloride 100 Carbon Dioxide 21 L Anion Gap 17.6 H BUN 41 H Creatinine 2.60 H Estimated GFR 26.5 Glucose 177 H Lactic Acid Calcium 9.1 Magnesium 2.0 Total Bilirubin 0.90 AST 234 H ALT 234 H Alkaline Phosphatase 404 H Troponin I 0.015 NT-Pro-B Natriuret Pep 13455 H Serum Total Protein 7.7 Albumin 3.9 Urine Color Urine Appearance Urine pH Ur Specific [place] Urine Protein Urine Ketones Urine Blood Urine Nitrite Urine Bilirubin Urine Urobilinogen Ur Leukocyte Esterase Urine WBC (Auto) Urine RBC (Auto) U Hyaline Cast (Auto) U Epithel Cells (Auto) Urine Bacteria (Auto) Urine Mucus (Auto) Urine Culture Reflexed Urine Glucose Orders (Last 24 hours) Category Date Time Status Bedrest ROUTINE Activity 04/23/20 01:20 Active Eyewear Consultant STAT Care 04/22/20 16:38 Completed Code Status Order ROUTINE Care 04/23/20 01:20 Active EKG-ER Only STAT Care 04/22/20 16:37 Completed IV Care Q6H Care 04/23/20 01:20 Active IV Insertion STAT Care 04/22/20 16:37 Completed Implement CHF Pathway ROUTINE Care 04/23/20 01:[address] in Observation ROUTINE Care 04/23/20 01:20 Active Pulse Oximetry (ED) STAT Care 04/22/20 16:37 Completed Re-Check Vital Signs STAT Care 04/22/20 16:37 Completed Telemetry q6h Care 04/23/20 01:20 Active Weight,Daily 0600 Care 04/23/20 01:20 Active Cardio-Pulmonary Rehab .as ordered Cons 04/23/20 02:19 Active Fire Warden/Discharge Plan ROUTINE Cons 04/23/20 02:13 Active House Regular Diet Diet 04/23/20 Lunch Active Nutritional Admission Screen ONCE Diet 04/23/20 02:13 Active CHEST 1 VIEW (PORTABLE) Stat Exams 04/22/20 16:40 Completed BMP AM.LAB Lab 04/23/20 04:30 Completed CBC AM.LAB Lab 04/23/20 04:30 Completed CBC W DIFF Stat Lab 04/22/20 16:37 Completed CMP Stat Lab 04/22/20 15:40 Completed Lactic Acid Stat Lab 04/22/20 17:10 Completed MAGNESIUM Stat Lab 04/22/20 15:40 Completed NT PRO BNP AM.LAB Lab 04/23/20 04:30 Completed NT PRO BNP Stat Lab 04/22/20 15:40 Completed PROTIME WITH INR Stat Lab 04/22/20 16:37 Completed TROPONIN Q3H Lab 04/22/20 15:40 Completed TROPONIN Q3H Lab 04/22/20 20:19 Completed TROPONIN Q3H Lab 04/22/20 22:45 Completed TROPONIN Q3H Lab 04/23/20 01:50 Completed TROPONIN Q3H Lab 04/23/20 04:30 Completed UA W/RFX UR CULTURE Stat Lab 04/22/20 17:23 Completed AMITRIPTYLINE HCL 50 mg Tab [AMITRIPTYLINE HCL 50 mg Med 04/23/20 22:00 Active Tablet] 50 mg PO HS Amiodarone HCl 200 mg [Cordarone 200 MG] Med 04/23/20 11:15 Active 200 mg PO DAILY Apixaban [Eliquis 2.5 mg Tablet] Med 04/23/20 11:15 Active 5 mg PO DAILY Aspirin 81 gm Chew [Baby Aspirin 81 mg Chew] Med 04/22/20 20:33 Discontinued 324 mg PO STAT ONE Aspirin EC 81 mg [Ecotrin 81 mg] Med 04/24/20 10:00 Active 81 mg PO DAILY Atorvastatin Calcium [Lipitor 40Mg] Med 04/23/20 22:00 Active 80 mg PO HS Clopidogrel Bisulfate 75 mg [PLAVIX 75 MG Tablet] Med 04/23/20 11:15 Active 75 mg PO DAILY Cyclobenzaprine HCl 10 mg [Cyclobenzaprine 10 MG] Med 04/23/20 15:00 Act maddy 10 mg PO TID Duloxetine HCl 30 mg [Cymbalta 30 MG Capsule] Med 04/23/20 11:15 Active 60 mg PO DAILY Furosemide 20 mg [Lasix 20 mg] Med 04/23/20 11:15 Active 20 mg PO DAILY Furosemide 40 mg/4 ml [Lasix 40 MG/4 ML] Med 04/22/20 20:22 Discontinued 40 mg .ROUTE .STK-MED ONE Furosemide 40 mg/4 ml [Lasix 40 MG/4 ML] Med 04/22/20 20:19 Discontinued 40 mg IV STAT ONE Hydrocodone /APAP 7.5/325 mg [[place] 7.5/325 mg Tab Med 04/23/20 11:03 Active ] 1 tab PO [id number] PRN Lisinopril 5 mg [Zestril 5 MG] Med 04/23/20 11:15 Active 5 mg PO DAILY Metoprolol Succinate 50 mg [Toprol Xl 50 MG] Med 04/23/20 11:15 Active 50 mg PO DAILY NaCl 0.9% 500 ml [Sodium Chloride 0.9% 500 ML] 500 ml Med 04/23/20 01:00 Discontinued Pantoprazole 40 mg [Protonix 40 mg IV] 80 mg IV 50 mls/hr Ondansetron HCl 4 mg/2 ml [Zofran 4 MG/2 ML VIAL] Med 04/22/20 20:33 Discontinued 4 mg IV STAT ONE Pantoprazole 40 mg [Protonix 40 mg IV] Med 04/23/20 01:00 Discontinued 40 mg IV .STK-MED ONE Pantoprazole 40 mg [Protonix 40 mg IV] Med 04/23/20 00:58 Discontinued 40 mg IV STAT ONE PT Eval & Treat (MD Order) ONCE PT 04/23/20 11:03 Active Smoking Cessation Education ONCE RT 04/23/20 02:13 Completed Transfer Order Routine Transfer 04/23/20 Completed Patient Care Notes (Last 24 hours) 04/23/20 09:13 Case Management Note by Deidre Roper S/W [place]- THEY POSSIBLY HAVE A BED FOR PATIENT THIS AM. THEY WILL HAVE THEIR PHYSICIAN CALL DR. MILES. Initialized on 04/23/20 09:13 - END OF NOTE I talked to Dr Ulrich at [facility]. We discussed patient labs and his opinion is that there is no new developement in his condition. All his labs are in range of one week ago when he was there. He advised that they are in severe bed crunch and see if he can be discharge home. He already has an appointment next week Code(s): I50.9 - HEART FAILURE, UNSPECIFIED (2) Acute renal failure Current Visit: No Status: Acute (3) Atrial flutter with rapid ventricular response Current Visit: No Status: Acute Code(s): I48.92 - UNSPECIFIED ATRIAL FLUTTER Hospital Summary - Hospital Course Hospital Course: Chief Complaint Diagnosis SOB, symptomatic anemia, suspected GI bleed Allergies Allergy/AdvReac Type Severity Reaction Status Date / Time No Known Drug Allergies Allergy Verified 04/23/20 01:31 Vital Signs (Last 24 hours) Temp Pulse Resp BP BP Pulse Ox 04/23/20 08:00 99.0 F 72 16 98/62 95 04/23/20 01:53 97.5 F 77 18 118/76 99 04/23/20 01:31 97.5 F 77 18 118/76 99 04/23/20 01:20 97.5 F 77 18 118/76 99 04/23/20 01:00 70 16 111/79 100 04/23/20 00:00 68 17 106/85 100 04/22/20 23:00 70 17 120/83 99 04/22/20 22:00 72 16 112/82 100 04/22/20 21:00 68 18 106/85 100 04/22/20 20:00 69 16 113/72 96 04/22/20 19:00 74 16 114/80 100 04/22/20 18:50 99 04/22/20 18:32 70 17 112/81 100 04/22/20 17:05 65 18 120/85 100 04/22/20 16:18 70 24 120/85 99 04/22/20 16:17 97.4 F 64 20 120/85 98 04/22/20 15:20 97.4 F 69 20 120/85 99 Home Medications Medication Instructions Recorded Confirmed Last Taken Type Amiodarone HCl 200 mg 200 mg PO DAILY 04/22/20 04/23/20 04/22/20 History [Cordarone 200 MG] Apixaban [Eliquis] 5 mg PO DAILY 04/22/20 04/23/2020 History Clopidogrel Bisulfate 75 mg 75 mg PO DAILY 04/22/20 04/23/20 04/22/20 History [PLAVIX 75 MG Tablet] Duloxetine HCl 60 mg PO DAILY 04/22/20 04/23/20 04/22/20 History Furosemide 20 mg [Lasix 20 20 mg PO DAILY 04/22/20 04/23/20 04/22/20 History mg] Lisinopril 5 mg [Zestril 5 5 mg PO DAILY 04/22/20 04/23/20 04/22/20 History MG] Hydrocodone/Acetaminophen 1 each PO [id number] PRN 04/23/20 04/23/20 Unknown History [Hydrocodone-Acetamin 7.5-325] Current Medications Generic Name Dose Route Start Last Admin Trade Name Freq PRN Reason Stop Dose Admin Hydrocodone Bitart/Acetaminophen 1 tab 04/23/20 11:03 04/23/20 11:31 [place] 7.5/325 Mg Tab PO 04/28/20 11:02 1 tab [id number] PRN Administration PAIN Amiodarone HCl 200 mg 04/23/20 11:15 04/23/20 11:24 Cordarone 200 Mg PO 05/23/20 11:14 200 mg DAILY NAOMI Administration Amitriptyline HCl 50 mg 04/23/20 22:00 Amitriptyline Hcl 50 Mg Tablet PO 05/23/20 21:59 HS [facility] Apixaban 5 mg 04/23/20 11:15 04/23/20 11:32 Eliquis 2.5 Mg Tablet PO 05/23/20 11:14 5 mg DAILY NAOMI Administration Aspirin 81 mg 04/24/20 10:00 Ecotrin 81 Mg PO 05/24/20 09:59 DAILY NAOMI Atorvastatin Calcium 80 mg 04/23/20 22:00 Lipitor 40mg PO 05/23/20 21:59 HS [facility] Clopidogrel Bisulfate 75 mg 04/23/20 11:15 Plavix 75 Mg Tablet PO 05/23/20 11:14 DAILY [facility] Cyclobenzaprine HCl 10 mg 04/23/20 15:00 Cyclobenzaprine 10 Mg PO 05/23/20 14:59 TID NAOMI Duloxetine HCl 60 mg 04/23/20 11:15 04/23/20 11:24 Cymbalta 30 Mg Capsule PO 05/23/20 11:14 60 mg DAILY NAOMI Administration Furosemide 20 mg 04/23/20 11:15 04/23/20 11:31 Lasix 20 Mg PO 05/23/20 11:14 20 mg DAILY NAOMI Administration Lisinopril 5 mg 04/23/20 11:15 Zestril 5 Mg PO 05/23/20 11:14 DAILY NAOMI Metoprolol Succinate 50 mg 04/23/20 11:15 04/23/20 11:30 Toprol Xl 50 Mg PO 05/23/20 11:14 50 mg DAILY NAOMI Administration Discontinued Medications Generic Name Dose Route Start Last Admin Trade Name Freq PRN Reason Stop Dose Admin Aspirin 324 mg 04/22/20 20:33 04/22/20 20:42 Baby Aspirin 81 Mg Chew PO 04/22/20 20:34 Not Given STAT ONE Furosemide 40 mg 04/22/20 20:19 04/22/20 20:25 Lasix 40 Mg/4 Ml IV 04/22/20 20:20 40 mg STAT ONE Administration Furosemide Confirm 04/22/20 20:22 Lasix 40 Mg/4 Ml Administered 04/22/20 20:23 Dose 40 mg .ROUTE .STK-MED ONE Pantoprazole Sodium 80 mg/ 500 mls @ 50 mls/hr 04/23/20 01:00 Sodium Chloride IV 05/23/20 00:59 .Q10H [facility] Ondansetron HCl 4 mg 04/22/20 20:33 04/22/20 20:41 Zofran 4 Mg/2 Ml Vial IV 04/22/20 20:34 Not Given STAT ONE Pantoprazole Sodium 40 mg 04/23/20 00:58 04/23/20 01:00 Protonix 40 Mg Iv IV 04/23/20 00:59 40 mg STAT ONE Administration Pantoprazole Sodium Confirm 04/23/20 01:00 Protonix 40 Mg Iv Administered 04/23/20 01:01 Dose 40 mg IV .STK-MED ONE Intake & Output (Last 24 hours) 04/20/20 04/21/20 04/22/20 1223/20 11:59 11:59 11:59 11:59 Output Total 1100 Balance -1100 Weight 57.7 kg Laboratory Results (Last 24 hours) 04/23/20 04/23/20 04/23/20 04:30 04:30 04:30 WBC 14.4 H RBC 3.14 L Hgb 8.7 L Hct 29.1 L MCV 92.7 MCH 27.7 MCHC 29.9 L RDW 15.4 H Plt Count 363 MPV 10.9 Gran % Eos # (Auto) Absolute Lymphs (auto) Absolute Monos (auto) Lymphocytes % Monocytes % Eosinophils % Basophils % Absolute Granulocytes Basophils # PT INR Sodium 135 L Potassium 4.9 Chloride 102 Carbon Dioxide 22 Anion Gap 15.4 H BUN 46 H Creatinine 2.70 H Estimated GFR 25.3 Glucose 104 Lactic Acid Calcium 8.7 Magnesium Total Bilirubin AST ALT Alkaline Phosphatase Troponin I 0.013 NT-Pro-B Natriuret Pep 52072 H Serum Total Protein Albumin Urine Color Urine Appearance Urine pH Ur Specific [place] Urine Protein Urine Ketones Urine Blood Urine Nitrite Urine Bilirubin Urine Urobilinogen Ur Leukocyte Esterase Urine WBC (Auto) Urine RBC (Auto) U Hyaline Cast (Auto) U Epithel Cells (Auto) Urine Bacteria (Auto) Urine Mucus (Auto) Urine Culture Reflexed Urine Glucose 04/23/20 04/22/20 04/22/20 01:50 22:45 20:19 WBC RBC Hgb Hct MCV MCH MCHC RDW Plt Count MPV Gran % Eos # (Auto) Absolute Lymphs (auto) Absolute Monos (auto) Lymphocytes % Monocytes % Eosinophils % Basophils % Absolute Granulocytes Basophils # PT INR Sodium Potassium Chloride Carbon Dioxide Anion Gap BUN Creatinine Estimated GFR Glucose Lactic Acid Calcium Magnesium Total Bilirubin AST ALT Alkaline Phosphatase Troponin I < 0.012 0.013 < 0.012 NT-Pro-B Natriuret Pep Serum Total Protein Albumin Urine Color Urine Appearance Urine pH Ur Specific [place] Urine Protein Urine Ketones Urine Blood Urine Nitrite Urine Bilirubin Urine Urobilinogen Ur Leukocyte Esterase Urine WBC (Auto) Urine RBC (Auto) U Hyaline Cast (Auto) U Epithel Cells (Auto) Urine Bacteria (Auto) Urine Mucus (Auto) Urine Culture Reflexed Urine Glucose 04/22/20 04/22/20 04/22/20 17:23 17:10 16:37 WBC RBC Hgb Hct MCV MCH MCHC RDW Plt Count MPV Gran % Eos # (Auto) Absolute Lymphs (auto) Absolute Monos (auto) Lymphocytes % Monocytes % Eosinophils % Basophils % Absolute Granulocytes Basophils # PT 52.7 H INR 4.59 H Sodium Potassium Chloride Carbon Dioxide Anion Gap BUN Creatinine Estimated GFR Glucose Lactic Acid 3.7 H Calcium Magnesium Total Bilirubin AST ALT Alkaline Phosphatase Troponin I NT-Pro-B Natriuret Pep Serum Total Protein Albumin Urine Color YELLOW Urine Appearance CLEAR Urine pH 5.0 Ur Specific [place] 1.018 Urine Protein 30 Urine Ketones NEGATIVE Urine Blood NEGATIVE Urine Nitrite NEGATIVE Urine Bilirubin NEGATIVE Urine Urobilinogen 2 Ur Leukocyte Esterase NEGATIVE Urine WBC (Auto) NONE Urine RBC (Auto) NONE U Hyaline Cast (Auto) 11-25 U Epithel Cells (Auto) NONE Urine Bacteria (Auto) NONE Urine Mucus (Auto) SLIGHT Urine Culture Reflexed NO Urine Glucose NEGATIVE 04/22/20 04/22/20 04/22/20 16:37 15:40 15:40 WBC 9.9 RBC 3.30 L Hgb 9.2 L Hct 30.8 L MCV 93.3 MCH 27.9 MCHC 29.9 L RDW 15.4 H Plt Count 437 MPV 10.9 Gran % 76.8 H Eos # (Auto) 0.12 Absolute Lymphs (auto) 1.66 Absolute Monos (auto) 0.50 Lymphocytes % 16.7 L Monocytes % 5.0 Eosinophils % 1.2 Basophils % 0.3 Absolute Granulocytes 7.63 H Basophils # 0.03 PT INR Sodium 134 L Potassium 4.4 Chloride 100 Carbon Dioxide 21 L Anion Gap 17.6 H BUN 41 H Creatinine 2.60 H Estimated GFR 26.5 Glucose 177 H Lactic Acid Calcium 9.1 Magnesium 2.0 Total Bilirubin 0.90 AST 234 H ALT 234 H Alkaline Phosphatase 404 H Troponin I 0.015 NT-Pro-B Natriuret Pep 34954 H Serum Total Protein 7.7 Albumin 3.9 Urine Color Urine Appearance Urine pH Ur Specific [place] Urine Protein Urine Ketones Urine Blood Urine Nitrite Urine Bilirubin Urine Urobilinogen Ur Leukocyte Esterase Urine WBC (Auto) Urine RBC (Auto) U Hyaline Cast (Auto) U Epithel Cells (Auto) Urine Bacteria (Auto) Urine Mucus (Auto) Urine Culture Reflexed Urine Glucose Orders (Last 24 hours) Category Date Time Status Bedrest ROUTINE Activity 04/23/20 01:20 Active Eyewear Consultant STAT Care 04/22/20 16:38 Completed Code Status Order ROUTINE Care 04/23/20 01:20 Active EKG-ER Only STAT Care 04/22/20 16:37 Completed IV Care Q6H Care 04/23/20 01:20 Active IV Insertion STAT Care 04/22/20 16:37 Completed Implement CHF Pathway ROUTINE Care 04/23/20 01:[address] in Observation ROUTINE Care 04/23/20 01:20 Active Pulse Oximetry (ED) STAT Care 04/22/20 16:37 Completed Re-Check Vital Signs STAT Care 04/22/20 16:37 Completed Telemetry q6h Care 04/23/20 01:20 Active Weight,Daily 0600 Care 04/23/20 01:20 Active Cardio-Pulmonary Rehab .as ordered Cons 04/23/20 02:19 Active Fire Warden/Discharge Plan ROUTINE Cons 04/23/20 02:13 Active House Regular Diet Diet 04/23/20 Lunch Active Nutritional Admission Screen ONCE Diet 04/23/20 02:13 Active CHEST 1 VIEW (PORTABLE) Stat Exams 04/22/20 16:40 Completed BMP AM.LAB Lab 04/23/20 04:30 Completed CBC AM.LAB Lab 04/23/20 04:30 Completed CBC W DIFF Stat Lab 04/22/20 16:37 Completed CMP Stat Lab 04/22/20 15:40 Completed Lactic Acid Stat Lab 04/22/20 17:10 Completed MAGNESIUM Stat Lab 04/22/20 15:40 Completed NT PRO BNP AM.LAB Lab 04/23/20 04:30 Completed NT PRO BNP Stat Lab 04/22/20 15:40 Completed PROTIME WITH INR Stat Lab 04/22/20 16:37 Completed TROPONIN Q3H Lab 04/22/20 15:40 Completed TROPONIN Q3H Lab 04/22/20 20:19 Completed TROPONIN Q3H Lab 04/22/20 22:45 Completed TROPONIN Q3H Lab 04/23/20 01:50 Completed TROPONIN Q3H Lab 04/23/20 04:30 Completed UA W/RFX UR CULTURE Stat Lab 04/22/20 17:23 Completed AMITRIPTYLINE HCL 50 mg Tab [AMITRIPTYLINE HCL 50 mg Med 04/23/20 22:00 Active Tablet] 50 mg PO HS Amiodarone HCl 200 mg [Cordarone 200 MG] Med 04/23/20 11:15 Active 200 mg PO DAILY Apixaban [Eliquis 2.5 mg Tablet] Med 04/23/20 11:15 Active 5 mg PO DAILY Aspirin 81 gm Chew [Baby Aspirin 81 mg Chew] Med 04/22/20 20:33 Discontinued 324 mg PO STAT ONE Aspirin EC 81 mg [Ecotrin 81 mg] Med 04/24/20 10:00 Active 81 mg PO DAILY Atorvastatin Calcium [Lipitor 40Mg] Med 04/23/20 22:00 Active 80 mg PO HS Clopidogrel Bisulfate 75 mg [PLAVIX 75 MG Tablet] Med 04/23/20 11:15 Active 75 mg PO DAILY Cyclobenzaprine HCl 10 mg [Cyclobenzaprine 10 MG] Med 04/23/20 15:00 Active 10 mg PO TID Duloxetine HCl 30 mg [Cymbalta 30 MG Capsule] Med 04/23/20 11:15 Active 60 mg PO DAILY Furosemide 20 mg [Lasix 20 mg] Med 04/23/20 11:15 Active 20 mg PO DAILY Furosemide 40 mg/4 ml [Lasix 40 MG/4 ML] Med 04/22/20 20:22 Discontinued 40 mg .ROUTE .STK-MED ONE Furosemide 40 mg/4 ml [Lasix 40 MG/4 ML] Med 04/22/20 20:19 Discontinued 40 mg IV STAT ONE Hydrocodone /APAP 7.5/325 mg [[place] 7.5/325 mg Tab Med 04/23/20 11:03 Active ] 1 tab PO [id number] PRN Lisinopril 5 mg [Zestril 5 MG] Med 04/23/20 11:15 Active 5 mg PO DAILY Metoprolol Succinate 50 mg [Toprol Xl 50 MG] Med 04/23/20 11:15 Active 50 mg PO DAILY NaCl 0.9% 500 ml [Sodium Chloride 0.9% 500 ML] 500 ml Med 04/23/20 01:00 Discontinued Pantoprazole 40 mg [Protonix 40 mg IV] 80 mg IV 50 mls/hr Ondansetron HCl 4 mg/2 ml [Zofran 4 MG/2 ML VIAL] Med 04/22/20 20:33 Discontinued 4 mg IV STAT ONE Pantoprazole 40 mg [Protonix 40 mg IV] Med 04/23/20 01:00 Discontinued 40 mg IV .STK-MED ONE Pantoprazole 40 mg [Protonix 40 mg IV] Med 04/23/20 00:58 Discontinued 40 mg IV STAT ONE PT Eval & Treat (MD Order) ONCE PT 04/23/20 11:03 Active Smoking Cessation Education ONCE RT 04/23/20 02:13 Completed Transfer Order Routine Transfer 04/23/20 Completed Patient Care Notes (Last 24 hours) 04/23/20 09:13 Case Management Note by Deidre Roper [facility] [place]- THEY POSSIBLY HAVE A BED FOR PATIENT THIS AM. THEY WILL HAVE THEIR PHYSICIAN CALL DR. MILES. Initialized on 04/23/20 09:13 - END OF NOTE - Vitals & Intake/Output Vital Signs: Vital Signs Temperature 99.0 F 04/23/20 08:00 Pulse Rate 72 04/23/20 08:00 Respiratory Rate 16 04/23/20 08:00 Blood Pressure 98/62 04/23/20 08:00 O2 Sat by Pulse Oximetry 95 04/23/20 08:00 Intake & Output: Intake & Output 04/20/20 04/21/20 04/22/20 04/23/20 11:59 11:59 11:59 11:59 Output Total 1100 Balance -1100 Weight 57.7 kg - Lab Result Diagrams: 04/23/20 04:30 04/23/20 04:30 Lab Results-Last 24 Hrs: Lab Results-Last 24 Hours 04/22/20 04/22/20 04/22/20 Range/Units 15:40 15:40 16:37 WBC 9.9 (4.0-10.5) K/mm3 RBC 3.30 L (4.1-5.6) M/mm3 Hgb 9.2 L (12.5-18.0) gm/dl Hct 30.8 L (42-50) % MCV 93.3 (78-100) fl MCH 27.9 (26-32) pg MCHC 29.9 L (32-36) g/dl RDW 15.4 H (11.5-14.0) % Plt Count 437 (150-450) K/mm3 MPV 10.9 (7.5-11.0) fl Gran % 76.8 H (36.0-66.0) % Eos # (Auto) 0.12 (0-0.5) Absolute Lymphs (auto) 1.66 (1.0-4.6) Absolute Monos (auto) 0.50 (0.0-1.3) Lymphocytes % 16.7 L (24.0-44.0) % Monocytes % 5.0 (0.0-12.0) % Eosinophils % 1.2 (0.00-5.0) % Basophils % 0.3 (0.0-0.4) % Absolute Granulocytes 7.63 H (1.4-6.9) Basophils # 0.03 (0-0.4) PT (8.83-12.87) SECONDS INR (0.8-3.0) Sodium 134 L (137-145) mmol/L Potassium 4.4 (3.5-5.1) mmol/L Chloride 100 (98-107) mmol/L Carbon Dioxide 21 L (22-30) mmol/L Anion Gap 17.6 H (5-15) MEQ/L BUN 41 H (9-20) mg/dL Creatinine 2.60 H (0.66-1.25) mg/dL Estimated GFR 26.5 ML/MIN Glucose 177 H (74-106) mg/dL Lactic Acid (0.4-2.0) Calcium 9.1 (8.4-10.2) mg/dL Magnesium 2.0 (1.6-2.3) mg/dL Total Bilirubin 0.90 (0.2-1.3) mg/dL AST 234 H (17-59) U/L ALT 234 H (0-50) U/L Alkaline Phosphatase 404 H (38-126) U/L Troponin I 0.015 (0.000-0.034) ng/mL NT-Pro-B Natriuret Pep 39782 H (0-900) pg/mL Serum Total Protein 7.7 (6.3-8.2) g/dL Albumin 3.9 (3.5-5.0) g/dL Urine Color (YELLOW) Urine Appearance (CLEAR) Urine pH (5-6) Ur Specific [place] (1.005-1.025) Urine Protein (Negative) Urine Ketones (NEGATIVE) Urine Blood (0-5) Travon/ul Urine Nitrite (NEGATIVE) Urine Bilirubin (NEGATIVE) Urine Urobilinogen (0-1) mg/dL Ur Leukocyte Esterase (NEGATIVE) Urine WBC (Auto) (0-5) /HPF Urine RBC (Auto) (0-2) /HPF U Hyaline Cast (Auto) (0-2) /LPF U Epithel Cells (Auto) (FEW) /HPF Urine Bacteria (Auto) (NEGATIVE) /HPF Urine Mucus (Auto) (NEGATIVE) /HPF Urine Culture Reflexed (NO) Urine Glucose (NEGATIVE) mg/dL 04/22/20 04/22/20 04/22/20 Range/Units 16:37 17:10 17:23 WBC (4.0-10.5) K/mm3 RBC (4.1-5.6) M/mm3 Hgb (12.5-18.0) gm/dl Hct (42-50) % MCV (78-100) fl MCH (26-32) pg MCHC (32-36) g/dl RDW (11.5-14.0) % Plt Count (150-450) K/mm3 MPV (7.5-11.0) fl Gran % (36.0-66.0) % Eos # (Auto) (0-0.5) Absolute Lymphs (auto) (1.0-4.6) Absolute Monos (auto) (0.0-1.3) Lymphocytes % (24.0-44.0) % Monocytes % (0.0-12.0) % Eosinophils % (0.00-5.0) % Basophils % (0.0-0.4) % Absolute Granulocytes (1.4-6.9) Basophils # (0-0.4) PT 52.7 H (8.83-12.87) SECONDS INR 4.59 H (0.8-3.0) Sodium (137-145) mmol/L Potassium (3.5-5.1) mmol/L Chloride (98-107) mmol/L Carbon Dioxide (22-30) mmol/L Anion Gap (5-15) MEQ/L BUN (9-20) mg/dL Creatinine (0.66-1.25) mg/dL Estimated GFR ML/MIN Glucose (74-106) mg/dL Lactic Acid 3.7 H (0.4-2.0) Calcium (8.4-10.2) mg/dL Magnesium (1.6-2.3) mg/dL Total Bilirubin (0.2-1.3) mg/dL AST (17-59) U/L ALT (0-50) U/L Alkaline Phosphatase (38-126) U/L Troponin I (0.000-0.034) ng/mL NT-Pro-B Natriuret Pep (0-900) pg/mL Serum Total Protein (6.3-8.2) g/dL Albumin (3.5-5.0) g/dL Urine Color YELLOW (YELLOW) Urine Appearance CLEAR (CLEAR) Urine pH 5.0 (5-6) Ur Specific [place] 1.018 (1.005-1.025) Urine Protein 30 (Negative) Urine Ketones NEGATIVE (NEGATIVE) Urine Blood NEGATIVE (0-5) Travon/ul Urine Nitrite NEGATIVE (NEGATIVE) Urine Bilirubin NEGATIVE (NEGATIVE) Urine Urobilinogen 2 (0-1) mg/dL Ur Leukocyte Esterase NEGATIVE (NEGATIVE) Urine WBC (Auto) NONE (0-5) /HPF Urine RBC (Auto) NONE (0-2) /HPF U Hyaline Cast (Auto) 11-25 (0-2) /LPF U Epithel Cells (Auto) NONE (FEW) /HPF Urine Bacteria (Auto) NONE (NEGATIVE) /HPF Urine Mucus (Auto) SLIGHT (NEGATIVE) /HPF Urine Culture Reflexed NO (NO) Urine Glucose NEGATIVE (NEGATIVE) mg/dL 04/22/20 04/22/20 04/23/20 Range/Units 20:19 22:45 01:50 WBC (4.0-10.5) K/mm3 RBC (4.1-5.6) M/mm3 Hgb (12.5-18.0) gm/dl Hct (42-50) % MCV (78-100) fl MCH (26-32) pg MCHC (32-36) g/dl RDW (11.5-14.0) % Plt Count (150-450) K/mm3 MPV (7.5-11.0) fl Gran % (36.0-66.0) % Eos # (Auto) (0-0.5) Absolute Lymphs (auto) (1.0-4.6) Absolute Monos (auto) (0.0-1.3) Lymphocytes % (24.0-44.0) % Monocytes % (0.0-12.0) % Eosinophils % (0.00-5.0) % Basophils % (0.0-0.4) % Absolute Granulocytes (1.4-6.9) Basophils # (0-0.4) PT (8.83-12.87) SECONDS INR (0.8-3.0) Sodium (137-145) mmol/L Potassium (3.5-5.1) mmol/L Chloride (98-107) mmol/L Carbon Dioxide (22-30) mmol/L Anion Gap (5-15) MEQ/L BUN (9-20) mg/dL Creatinine (0.66-1.25) mg/dL Estimated GFR ML/MIN Glucose (74-106) mg/dL Lactic Acid (0.4-2.0) Calcium (8.4-10.2) mg/dL Magnesium (1.6-2.3) mg/dL Total Bilirubin (0.2-1.3) mg/dL AST (17-59) U/L ALT (0-50) U/L Alkaline Phosphatase (38-126) U/L Troponin I < 0.012 0.013 < 0.012 (0.000-0.034) ng/mL NT-Pro-B Natriuret Pep (0-900) pg/mL Serum Total Protein (6.3-8.2) g/dL Albumin (3.5-5.0) g/dL Urine Color (YELLOW) Urine Appearance (CLEAR) Urine pH (5-6) Ur Specific [place] (1.005-1.025) Urine Protein (Negative) Urine Ketones (NEGATIVE) Urine Blood (0-5) Travon/ul Urine Nitrite (NEGATIVE) Urine Bilirubin (NEGATIVE) Urine Urobilinogen (0-1) mg/dL Ur Leukocyte Esterase (NEGATIVE) Urine WBC (Auto) (0-5) /HPF Urine RBC (Auto) (0-2) /HPF U Hyaline Cast (Auto) (0-2) /LPF U Epithel Cells (Auto) (FEW) /HPF Urine Bacteria (Auto) (NEGATIVE) /HPF Urine Mucus (Auto) (NEGATIVE) /HPF Urine Culture Reflexed (NO) Urine Glucose (NEGATIVE) mg/dL 04/23/20 04/23/20 04/23/20 Range/Units 04:30 04:30 04:30 WBC 14.4 H (4.0-10.5) K/mm3 RBC 3.14 L (4.1-5.6) M/mm3 Hgb 8.7 L (12.5-18.0) gm/dl Hct 29.1 L (42-50) % MCV 92.7 (78-100) fl MCH 27.7 (26-32) pg MCHC 29.9 L (32-36) g/dl RDW 15.4 H (11.5-14.0) % Plt Count 363 (150-450) K/mm3 MPV 10.9 (7.5-11.0) fl Gran % (36.0-66.0) % Eos # (Auto) (0-0.5) Absolute Lymphs (auto) (1.0-4.6) Absolute Monos (auto) (0.0-1.3) Lymphocytes % (24.0-44.0) % Monocytes % (0.0-12.0) % Eosinophils % (0.00-5.0) % Basophils % (0.0-0.4) % Absolute Granulocytes (1.4-6.9) Basophils # (0-0.4) PT (8.83-12.87) SECONDS INR (0.8-3.0) Sodium 135 L (137-145) mmol/L Potassium 4.9 (3.5-5.1) mmol/L Chloride 102 (98-107) mmol/L Carbon Dioxide 22 (22-30) mmol/L Anion Gap 15.4 H (5-15) MEQ/L BUN 46 H (9-20) mg/dL Creatinine 2.70 H (0.66-1.25) mg/dL Estimated GFR 25.3 ML/MIN Glucose 104 (74-106) mg/dL Lactic Acid (0.4-2.0) Calcium 8.7 (8.4-10.2) mg/dL Magnesium (1.6-2.3) mg/dL Total Bilirubin (0.2-1.3) mg/dL AST (17-59) U/L ALT (0-50) U/L Alkaline Phosphatase (38-126) U/L Troponin I 0.013 (0.000-0.034) ng/mL NT-Pro-B Natriuret Pep 21511 H (0-900) pg/mL Serum Total Protein (6.3-8.2) g/dL Albumin (3.5-5.0) g/dL Urine Color (YELLOW) Urine Appearance (CLEAR) Urine pH (5-6) Ur Specific [place] (1.005-1.025) Urine Protein (Negative) Urine Ketones (NEGATIVE) Urine Blood (0-5) Travon/ul Urine Nitrite (NEGATIVE) Urine Bilirubin (NEGATIVE) Urine Urobilinogen (0-1) mg/dL Ur Leukocyte Esterase (NEGATIVE) Urine WBC (Auto) (0-5) /HPF Urine RBC (Auto) (0-2) /HPF U Hyaline Cast (Auto) (0-2) /LPF U Epithel Cells (Auto) (FEW) /HPF Urine Bacteria (Auto) (NEGATIVE) /HPF Urine Mucus (Auto) (NEGATIVE) /HPF Urine Culture Reflexed (NO) Urine Glucose (NEGATIVE) mg/dL - Radiology Exams Ordered Rad Exams-Entire Visit: Radiology Procedures Category Date Time Status CHEST 1 VIEW (PORTABLE) Stat Exams 04/22/20 16:40 Completed - Procedures and Test Procedures and Tests throughout Hospitalization: Therapy Orders & Screens 04/23/20 02:13 Smoking Cessation Education ONCE Comment: Diagnosis: SOB, symptomatic anemia, suspected GI bleed Smoking Status: Current every day smoker How long have you smoked: years Do you dip or chew tobacco: No 04/23/20 11:03 PT Eval & Treat ( Order) ONCE Reason for Eval:: WEAKNESS Diagnosis: SOB, symptomatic anemia, suspected GI bleed - Discharge Discharge Date: 04/23/20 Disposition: Home, Self-Care Condition: Stable Prescriptions: No Action Aspirin EC 81 mg [Ecotrin 81 mg] 81 mg PO DAILY AMITRIPTYLINE HCL 50 mg Tab [AMITRIPTYLINE HCL 50 mg Tablet] 50 mg PO HS Metoprolol Succinate 100 mg [Toprol Xl 100 MG] 50 mg PO DAILY Atorvastatin Calcium [Lipitor] 80 mg PO DAILY Cyclobenzaprine HCl 10 mg [Cyclobenzaprine 10 MG] 10 mg PO TID Lisinopril 5 mg [Zestril 5 MG] 5 mg PO DAILY Furosemide 20 mg [Lasix 20 mg] 20 mg PO DAILY Duloxetine HCl 60 mg PO DAILY Clopidogrel Bisulfate 75 mg [PLAVIX 75 MG Tablet] 75 mg PO DAILY Apixaban [Eliquis] 5 mg PO DAILY Amiodarone HCl 200 mg [Cordarone 200 MG] 200 mg PO DAILY Hydrocodone/Acetaminophen [Hydrocodone-Acetamin 7.5-325] 1 each PO [id number] PRN PRN Reason: Pain Follow up with: DOCTOR,NO FAMILY [Primary Care Provider] -
[2020-04-23 12:31] VITALS: BP 110/68
[2020-04-23 13:22] VITALS: O2SAT 100
[2020-04-23] MEDS ORDERED: Cyclobenzaprine 10 MG PO SCH (15:00)
[2020-04-23] MEDS ORDERED: LIPITOR 40MG PO SCH (22:00)
[2020-04-24] MEDS ORDERED: NON-FORMULARY ITEM (Atorvastatin Calcium [Lipitor] 80 MG) PO SCH (10:00)
[2020-04-24] MEDS ORDERED: NON-FORMULARY ITEM (Apixaban [Eliquis] 5 MG) PO SCH (10:00)
[2020-04-24] MEDS ORDERED: ECOTRIN 81 MG PO SCH (10:00)
[2020-04-24] MEDS ORDERED: NON-FORMULARY ITEM (Duloxetine Hcl [Duloxetine Hcl] 60 MG) PO SCH (10:00)
== END 2020-04-23 13:30 | disposition home or self-care (01) ==
LOC: ED 15:12 → EDBD 15:12 → MED SURG 04-23 01:19
PROVIDERS: ADMIT General Practice; ATTEND General Practice
DX: I11.0 Hypertensive heart disease with heart failure (principal); I50.43 Acute on chronic combined systolic (congestive) and diastolic (congestive) heart failure; Z79.01 Long term (current) use of anticoagulants; Z79.899 Other long term (current) drug therapy; E78.00 Pure hypercholesterolemia, unspecified; N17.9 Acute kidney failure, unspecified; I48.92 Unspecified atrial flutter; R53.83 Other fatigue; R53.1 Weakness; D64.9 Anemia, unspecified
CPT/HCPCS: 36000; 36415; 71045; 80048; 80053; 81001; 83605; 83735; 83880; 84484; 85025; 85027; 85610; 93005; 93041; 93268; 94760; 96374; 96375; 97161; 99285; G0378; J1940; A9270-GY